=== PATIENT | female | born 1965 | race Caucasian/White ===

== ENCOUNTER → 2019-12-16 09:31 | Outpatient (BNVA) | payer BC, SELFPAY | PROVIDERS: Family Provider Nurse Practitioner Family; PCP Nurse Practitioner Family; Visit Provider Podiatrist Foot & Ankle Surgery | DX: M79.672 Pain in left foot (principal) | CPT/HCPCS: 73630; 87070; 87075; 87205 ==

== ENCOUNTER → 2020-12-29 13:58 | Outpatient (BNVA) | payer BC, SELFPAY | PROVIDERS: Family Provider Nurse Practitioner Family; PCP Nurse Practitioner Family; Visit Provider Podiatrist Foot & Ankle Surgery | DX: E11.621 Type 2 diabetes mellitus with foot ulcer (principal); L97.509 Non-pressure chronic ulcer of other part of unspecified foot with unspecified severity | CPT/HCPCS: 73630 ==

== ENCOUNTER 2020-12-29 14:45 | Outpatient (CLI) | payer BC, SELFPAY | END 2020-12-29 14:46 | disposition home or self-care (01) | LOC: SPT 14:46 | PROVIDERS: Family Provider Nurse Practitioner Family; PCP Nurse Practitioner Family; Visit Provider Podiatrist Foot & Ankle Surgery | DX: Z46.89 Encounter for fitting and adjustment of other specified devices (principal) | CPT/HCPCS: 87070; 87075; 87077; 87205; 97760; L4361 ==

== ENCOUNTER → 2021-01-01 15:30 | Outpatient (BNVA) | payer BC, SELFPAY | PROVIDERS: Family Provider Nurse Practitioner Family; PCP Nurse Practitioner Family; Visit Provider Podiatrist Foot & Ankle Surgery | DX: E11.621 Type 2 diabetes mellitus with foot ulcer (principal); L97.509 Non-pressure chronic ulcer of other part of unspecified foot with unspecified severity; Z01.818 Encounter for other preprocedural examination; E11.42 Type 2 diabetes mellitus with diabetic polyneuropathy; M21.611 Bunion of right foot; M21.612 Bunion of left foot; M20.21 Hallux rigidus, right foot; M20.22 Hallux rigidus, left foot; L97.523 Non-pressure chronic ulcer of other part of left foot with necrosis of muscle; Z20.822 Contact with and (suspected) exposure to COVID-19 | CPT/HCPCS: 87635 ==

== ENCOUNTER 2021-01-02 11:03 | Day surgery (SDC) | payer BC, SELFPAY ==
[2021-01-01 17:06] VITALS: BMI 27.8
[2021-01-02] VITALS (7 sets, daily range): BP systolic 114–142; BP diastolic 72–87; PULSE 66–100; RESP 16–18; TEMP 36.7–36.8; O2SAT 92–98
--- NOTE | 2021-01-02 11:30 | P.ANESASSM_ITS ---
Pre-Anesthetic Assessment Pre-Anesthetic Assessment: Height/Weight: Height 1.8 m Weight 90.718 kg Preop Diagnosis: Diabetic foot infection left foot Proposed Procedure: Operation Date: 01/02/21 12:25 Proposed Procedures p Incision and Debridement Left Foot 20872 L97.523(Left) - RADHA GaticaM Was Beta Gustavo taken within 24 hours: Yes Was Clonidine taken within 24 hours: N/A Social: Social History: Tobacco Exam: Pre-Anes Outpt Exam: alert, oriented x 3, clear to auscultation bilaterally and regular rate & rhythm Airway: Submandibular: WNL Cervical ROM: WNL MP: 2 History/ROS: No significant history except as noted and No significant co mplaints CV/HEM: CV/HEM: HTN Metabolic: Metabolic: DM Anesthetic Plan: ASA status: 3 Anesthesia: Anesthesia Evaluation, General and MAC Other: MAC vs GA w/ LMA Risk of > 500 ml blood loss (7ml/kg in children): No PFSH Anesthesia PFSH: Medical History Hypertension Neuropathy Surgical History History of delivery Family History Other Diabetes Social History Current occupational status: employed Current occupation: [employer] Anesthesia Cardiac Studies: No Data to Display
[2021-01-02 11:56] LABS: Glucose Point of Care 332 mg/dL (70-110)
--- NOTE | 2021-01-02 12:04 | W.PM.OPSUD ---
Surgery/Procedure H&P Update DATE OF PROCEDURE: January 02, 2021 DATE H&P PERFORMED: 01/01/21 H&P UPDATE INFORMATION: I have reviewed H&P completed within last 30 days, I have examined patient prior to procedure, No changes to prior documentation and H&P is in [facility] [place] EMR on date indicated PREOP DIAGNOSIS: Diabetic foot infection left foot PLANNED PROCEDURE: Operation Date: 01/02/21 12:25 Proposed Procedures p Incision and Debridement Left Foot 30396 L97.523(Left) - Abdias Oneal DPM
[2021-01-02] MEDS: sodium chloride 0.9% 1,000 ML 30 ML IV (12:05)
[2021-01-02] MEDS: midazolam 1 mg/mL INJ 2 mL 2 MG IVP (12:05)
--- NOTE | 2021-01-02 12:05 | PM.OP ---
Operative Report Date of procedure: January 02, 2021 Pre-op Diagnosis: Diabetic foot infection left foot Post-op diagnosis: same Procedure Done: Incision and Debridement down to bone left Foot 31894 Implants: None Surgeon: Abdias Oneal DPM [employer] Supervisor: Sarah Anesthesia: MAC Estimated blood loss: 20 Tourniquet time: 0 IV fluids: 0 Urine output: 0 Complications: None Condition: stable Disposition: PACU Brief History: Patient states a new wound popped up overnight on her left foot refused admission to the hospital, has been on oral antibiotics without any worsening of erythema or ascending cellulitis or other deep tissue necrosis I recommended formal surgical debridement patient is agreeable. Risks include pain, bleeding, numbness, infection, amputation, need for further surgical intervention, antibiotic therapies and wound care therapies. No guarantees written, expressed or implied. Procedure: Under mild sedation the patient was brought to the operating room and remained on the gurney in supine position. Timeout was performed. Anesthesia was administered by the anesthesia service. Local anesthesia injected by myself 20 cc of one-to-one mixture 1% lidocaine and point 5C Marcaine plain in a left Tejada block fashion. Well-padded pneumatic tourniquet applied to the left ankle this was not inflated during the duration of procedure. Left lower extremity was scrubbed, prepped and draped utilizing normal aseptic technique. Attention was directed to the left foot where a #10 blade was utilized to excise to healthy margins of the wound circumferentially down to deep fascia and muscle. Wound was debrided sharply and excisionally nature with a combination of 15 blade, pickups and a rongeur. Had the appearance of the original wound at the plantar aspect of the left hallux and then is sending infection to the medial aspect of the left first metatarsophalangeal joint. The wound traveled to bone involving the cortex of the plantar surface of the left hallux proximal phalanx which was incised and debrided down to bone of normal density and color. Incision was flushed with copious amounts of sterile saline solution, post debridement left plantar hallux wound measurements 1.5 cm x 1.5 cm x 0.5 cm in the medial left forefoot wound measures 9 cm x 5 cm x 0.4 cm. Incision was flushed with copious amounts of sterile saline solution 1 g of vancomycin powder directly applied to the wound bed followed by saline wet-to-dry dressing, outer Kerlix and 4 inch Coban. Patient tolerated the procedure well and was transferred to the PACU with vital signs stable and vascular status intact. Has an appointment tomorrow and wound care will await final culture that was taken previously and consider PICC line, will collaborate with wound care.
[2021-01-02] MEDS: insulin regular-human 100 units/1 mL 10 UNIT IVP (12:16)
--- NOTE | 2021-01-02 12:16 | XR_ITS ---
WS: [id number] Left foot, 3 views, 01/02/2021 Clinical Data: post op Comparison: Left foot, 12/29/2020. Findings: There is irregularity of the soft tissue overlying the medial aspect of the left first toe proximal p halanx from recent surgery. A radiopaque dressing is overlying this area. The bones of the left foot show no change. XR/XR foot LT min 3V* [id number] Impression: Soft tissue surgery with irregularity of the soft tissue overlying the left fir st toe proximal phalanx.
[2021-01-02] MEDS: clindamycin 600 MG/50 ML PREMIX 100 MG IV (12:18)
[2021-01-02 12:32] LABS: OR HCG Qualitative Urine Negative (Negative)
[2021-01-02] MEDS: vancomycin 1,000 MG SDV 1000 MG XX (12:38)
[2021-01-02] MEDS: lidocaine 1% INJ 20 mL 10 ML XX (12:40)
--- NOTE | 2021-01-02 16:45 | ANE.PACU2 ---
Inpatient post-anesthesia follow up: Airway intact: Yes Vital signs: Temperature 98.0 F Pulse Rate 83 Respiratory Rate 18 Blood Pressure 117/79 Pulse Oximetry 92 Oxygen Delivery Me thod Room Air Oxygen Flow Rate Fraction of Inspir ed Oxygen Hydration adequate: Yes Nausea and vomiting: No Pain level: 1 Mental status: Baseline
== END 2021-01-02 13:56 | disposition home or self-care (01) ==
PROVIDERS: Student in an Organized Health Care Education/Training Program; PCP Nurse Practitioner Family; Visit Provider Podiatrist Foot & Ankle Surgery
PROC: (CPT 28005; principal; 2021-01-02 12:15)
DX: E11.621 Type 2 diabetes mellitus with foot ulcer (principal); L97.523 Non-pressure chronic ulcer of other part of left foot with necrosis of muscle; E11.42 Type 2 diabetes mellitus with diabetic polyneuropathy; M21.612 Bunion of left foot; M20.22 Hallux rigidus, left foot; G62.9 Polyneuropathy, unspecified; I10 Essential (primary) hypertension; Z88.0 Allergy status to penicillin; Z79.4 Long term (current) use of insulin; Z83.3 Family history of diabetes mellitus
CPT/HCPCS: 28005; 36416; 73630; 81025; 82962; 84703; 96365; 96374; J1815; J2250; J2704; J3370; J3490; J7030

== ENCOUNTER → 2021-01-08 09:47 | Outpatient (BNVA) | payer BC, SELFPAY | PROVIDERS: PCP Nurse Practitioner Family; Visit Provider Podiatrist Foot & Ankle Surgery | DX: L97.523 Non-pressure chronic ulcer of other part of left foot with necrosis of muscle (principal) | CPT/HCPCS: 73630 ==

== ENCOUNTER → 2021-01-22 16:06 | Outpatient (BNVA) | payer BC, SELFPAY | PROVIDERS: PCP Nurse Practitioner Family; Visit Provider Podiatrist Foot & Ankle Surgery | DX: L97.523 Non-pressure chronic ulcer of other part of left foot with necrosis of muscle (principal); M77.32 Calcaneal spur, left foot; M65.872 Other synovitis and tenosynovitis, left ankle and foot | CPT/HCPCS: 73630 ==

== ENCOUNTER 2021-01-30 10:12 | Outpatient (CLI) | payer BC, SELFPAY | END 2021-01-30 10:13 | disposition home or self-care (01) | PROVIDERS: PCP Nurse Practitioner Family; Visit Provider Thoracic Surgery (Cardiothoracic Vascular Surgery) | DX: E11.621 Type 2 diabetes mellitus with foot ulcer (principal); L97.523 Non-pressure chronic ulcer of other part of left foot with necrosis of muscle; Z87.891 Personal history of nicotine dependence | CPT/HCPCS: 11043; G0463 ==

== ENCOUNTER 2021-02-06 13:12 | Outpatient (CLI) | payer BC, SELFPAY | END 2021-02-06 13:13 | disposition home or self-care (01) | LOC: WOUND 13:12 | PROVIDERS: PCP Nurse Practitioner Family; Visit Provider Thoracic Surgery (Cardiothoracic Vascular Surgery) | DX: I96 Gangrene, not elsewhere classified (principal); E11.621 Type 2 diabetes mellitus with foot ulcer; L97.523 Non-pressure chronic ulcer of other part of left foot with necrosis of muscle; Z87.891 Personal history of nicotine dependence | CPT/HCPCS: 11043 ==

== ENCOUNTER 2021-02-13 13:03 | Outpatient (CLI) | payer BC, SELFPAY | END 2021-02-13 13:04 | disposition home or self-care (01) | LOC: WOUND 13:05 | PROVIDERS: PCP Nurse Practitioner Family; Visit Provider Nurse Practitioner Family | DX: I96 Gangrene, not elsewhere classified (principal); E11.621 Type 2 diabetes mellitus with foot ulcer; L97.521 Non-pressure chronic ulcer of other part of left foot limited to breakdown of skin; I10 Essential (primary) hypertension; Z87.891 Personal history of nicotine dependence | CPT/HCPCS: 11042 ==

== ENCOUNTER 2021-02-26 11:29 | Outpatient (CLI) | payer BC, SELFPAY ==
--- NOTE | 2021-02-26 11:40 | MR_ITS ---
WS: [id number] MRI LEFT FOOT with and without CONTRAST. COMPARISON: Radiographs 01/22/2021 Multiplanar, multisequence imaging is performed with and without contrast. Sagittal and axial T1 fat sat sequences post-MultiHance 20 cc IV. There is extensive edema with increased soft tissue thickening involving the medial foot beginning ne ar the proximal first metatarsal and extending distally to the first IP joint. Soft tissue thickening and edema extends laterally to encase the first metatarsophalangeal joint and the proximal phalanx o f the first toe and the sesamoid bones. On the postcontrast imaging there is enhancement with loss of the normal cortex involving the medial first metatarsal head. There is additional osseous enhancemen t involving the base of the proximal medial first phalanx. There is soft tissue enhancement surroundi ng the first metatarsal and a large portion of the first toe. There is a soft tissue ulceration measu ring 1.4 cm in diameter extending to about the first metatarsal head and the joint. There is an addit ional 1.1 cm peripherally enhancing soft tissue mass consistent with an abscess just medial to the pr oximal first phalanx. There is edema surrounding the distal flexor hallucis longus tendon along the p lantar surface distally at the level of the metatarsal and toe. There is additional edema surrounding the foot but no additional areas of bone destruction appreciate d. MR/MR foot LT wo/w con [id number] IMPRESSION: 1. Osteomyelitis involving the first metatarsal head and the base of the proxi mal phalanx first toe. 2. Soft tissue ulceration measures 1.4 cm in diameter extends to the first met atarsal head. 3. Additional soft tissue abscess measuring 1.1 cm just medial to the proximal phalanx of the first toe. 4. Additional diffuse cellulitis involving the medial foot. 5. Enhancement surrounding the sesamoid bones of the first metatarsal head and there is enlargement and enhancement involving the sheath of the flexor halluc is longus tendon.
[2021-02-26] MEDS: gadobenate dimeglumine 20 mL vial IV (12:51)
== END 2021-02-26 11:30 | disposition home or self-care (01) ==
LOC: RADSHAW 11:36
PROVIDERS: PCP Nurse Practitioner Family; Visit Provider Thoracic Surgery (Cardiothoracic Vascular Surgery)
DX: E11.621 Type 2 diabetes mellitus with foot ulcer (principal); M86.8X7 Other osteomyelitis, ankle and foot; L03.116 Cellulitis of left lower limb
CPT/HCPCS: 73720; A9577

== ENCOUNTER 2021-02-26 13:18 | Outpatient (CLI) | payer BC, SELFPAY | END 2021-02-26 13:19 | disposition home or self-care (01) | LOC: WOUND 13:18 | PROVIDERS: PCP Nurse Practitioner Family; Visit Provider Thoracic Surgery (Cardiothoracic Vascular Surgery) | DX: E11.621 Type 2 diabetes mellitus with foot ulcer (principal); L97.526 Non-pressure chronic ulcer of other part of left foot with bone involvement without evidence of necrosis; Z87.891 Personal history of nicotine dependence | CPT/HCPCS: 11043 ==

== ENCOUNTER → 2021-02-28 15:52 | Outpatient (BNVA) | payer BC, SELFPAY | PROVIDERS: PCP Nurse Practitioner Family; Visit Provider Podiatrist Foot & Ankle Surgery | DX: L97.523 Non-pressure chronic ulcer of other part of left foot with necrosis of muscle (principal); L03.116 Cellulitis of left lower limb | CPT/HCPCS: 73630 ==

== ENCOUNTER → 2021-03-05 10:28 | Outpatient (BNVA) | payer BC, SELFPAY | PROVIDERS: PCP Nurse Practitioner Family; Visit Provider Podiatrist Foot & Ankle Surgery | DX: E11.42 Type 2 diabetes mellitus with diabetic polyneuropathy (principal); L97.523 Non-pressure chronic ulcer of other part of left foot with necrosis of muscle | CPT/HCPCS: 87635 ==

== ENCOUNTER 2021-03-16 05:35 | Day surgery (SDC) | payer BC, SELFPAY ==
[2021-03-15 13:19] VITALS: BMI 27.9
[2021-03-16] VITALS (9 sets, daily range): BP systolic 102–125; BP diastolic 62–93; PULSE 81–95; RESP 12–18; TEMP 36.3–36.5; O2SAT 94–98
[2021-03-16] MEDS: sodium chloride 0.9% 1,000 ML 30 ML IV (06:21)
[2021-03-16 06:27] LABS: Glucose Point of Care 362 mg/dL (70-110)
--- NOTE | 2021-03-16 06:40 | W.PM.OPSUD ---
Surgery/Procedure H&P Update DATE OF PROCEDURE: March 16, 2021 DATE H&P PERFORMED: 03/14/21 H&P UPDATE INFORMATION: I have reviewed H&P completed within last 30 days, I have examined patient prior to procedure, No changes to prior documentation and H&P is in [facility] EMR on date indicated PREOP DIAGNOSIS: Osteomyelitis left foot PLANNED PROCEDURE: Operation Date: 03/16/21 07:00 Proposed Procedures p Right foot Debridement 25984 95382 E11.42 L97.524 Z91.19(Left) - Abdias Oneal DPM s Insertion Antibiotic Spacer Left Foot(Left) - Abdias Oneal DPM
--- NOTE | 2021-03-16 06:48 | ANES.PREANE2 ---
Pre-Anesthetic Assessment Pre-Anesthetic Assessment: Height/Weight: Height 1.78 m Weight 88.451 kg Temp Pulse Resp BP Pulse Ox 97.7 F 95 18 125/93 96 03/16/21 06:04 03/16/21 06:04 03/16/21 06:04 03/16/21 06:04 03/16/21 06:04 Preop Diagnosis: Osteomyelitis left foot Proposed Procedure: Operation Date: 03/16/21 07:00 Proposed Procedures p Right foot Debridement 04164 59910 E11.42 L97.524 Z91.19(Left) - Abdias Oneal DPM s Insertion Antibiotic Spacer Left Foot(Left) - Abdias Oneal DPM Was Beta Gustavo taken within 24 hours: Yes Was Clonidine taken within 24 hours: N/A Last intake: Intake Last Liquid Date 03/15/21 Last Liquid Time 22:00 Last Solid Date 03/15/21 Last Solid Time 19:00 Social: Social History: Tobacco and No alcohol Exam: Pre-Anes Outpt Exam: alert, oriented x 3 and regular rate & rhythm Airway: Submandibular: WNL Cervical ROM: WNL MP: 2 Dentition: Full CV/HEM: CV/HEM: HTN Metabolic: Metabolic: DM Anesthetic Plan: ASA status: 3 Anesthesia: Choice Risk of > 500 ml blood loss (7ml/kg in children): No Medications/Allergies Current Medications: Current Medications Generic Name Dose Route Start Last Admin Trade Name Freq PRN Reason Stop Dose Admin Sodium Chloride 1,000 mls @ 30 ml s/hr 03/16/21 06:00 03/16/21 06:21 Sodium Chloride 0.9% IV 03/17/21 05:59 30 mls/hr .Q24H NORMAN Administration PFSH Anesthesia PFSH: Medical History Hypertension Neuropathy Surgical History History of delivery Family History Other Diabetes Social History Current occupational status: employed Current occupation: [employer] Data Anesthesia Other Labs: Laboratory Results - last 48 hr 03/16/21 06:20 POC Glucose 362 H Cardiac Studies: No Data to Display
[2021-03-16 07:09] LABS: OR HCG Qualitative Urine Negative (Negative)
[2021-03-16] MEDS: clindamycin 600 MG/50 ML PREMIX 100 MG IV (07:11)
[2021-03-16] MEDS: vancomycin 1,000 MG SDV 1000 MG XX (07:40)
[2021-03-16] MEDS: vancomycin 1,000 MG SDV 1000 MG (07:45)
[2021-03-16] MEDS: lidocaine 1% INJ 20 mL XX (07:45)
--- NOTE | 2021-03-16 07:56 | PM.OP ---
Operative Report Date of procedure: March 16, 2021 Pre-op Diagnosis: Osteomyelitis left foot Post-op diagnosis: same Post-op Diagnosis: Diabetic ulcer and osteomyelitis left foot Post-op Findings: Improved wound appearance post debridement Procedure Done: Incision of bone cortex left first metatarsal CPT code 92817 Implants: 3-0 nylon Specimens removed/disposition: Medial aspect of left first metatarsal head sent to microbiology for Gram stain and culture Pathology: none sent Surgeon: Abdias Oneal D.P.M. Employee Services Manager: Aj Anesthesia: MAC Estimated blood loss: 10 Tourniquet time: 20 IV fluids: None Urine output: None Complications: None Findings: Decreased bone density and off yellow color involving the very medial aspect of the left first metatarsal, first metatarsal head across the cartilaginous surface and remaining first metatarsal had appropriate bone density and color. Significant devitalized tissue down to fascia and muscle at the left plantar medial forefoot. Condition: stable Disposition: PACU Brief History: Patient has had a delayed healing wound at the medial aspect of her left forefoot, started out as a callus then blistered, became a infected diabetic ulcer and she sought medical treatment. She has not been following through with referrals to endocrinology and primary care to help manage her diabetes. She also has not been compliant with weightbearing status, remains active and walking/standing. She has received treatment for this wound consisting of debridement, wound cultures, local wound care, oral antibiotics and offloading, this is been a joint effort between myself and the wound care clinic. Patient's wound has become more concerning for possible osteomyelitis, MRI shows early osteomyelitis at the base of the proximal phalanx and head of the first metatarsal of the left foot first metatarsophalangeal joint. Patient is wishing to pursue all efforts to maintain her foot and avoid amputation. Recommended endocrinology referral for glycemic control, establishing and following up with primary care, more compliance with her weightbearing status and a surgical debridement and incision down to bone to help guide long-term antibiotic therapy combined with wound care in efforts to salvage her foot. Patient is agreeable wishes to proceed. Has been n.p.o. since midnight. This procedure was delayed due to a positive Covid swab, initial plan was to do her surgery last week but had to wait 10 days following her positive Covid. Patient is asymptomatic at this time is waited 10 days and is ready to proceed. Risks include but are not limited to pain, bleeding, numbness, infection, persistent osteomyelitis and ascending infection, transfer pressure, transfer lesion, need for further surgical intervention, amputation, need for wound care, oral and possible parenteral antibiotics, delayed healing, nonhealing. Patient is agreeable wishes to proceed. No guarantees written, expressed or implied. Under mild sedation the patient was brought to the operating room and remained on the gurney in supine position. A timeout was performed. Anesthesia was then administered by the anesthesia service. Local anesthesia injected by myself consisting of 30 cc of one-to-one mixture 1% lidocaine and 0.5% Marcaine plain in a proximal Tejada block fashion. Well-padded pneumatic tourniquet applied to the left ankle. The left foot was then scrubbed, prepped and draped utilizing normal aseptic technique. Tourniquet was then inflated to 250 mmHg. Attention was directed to the dorsal medial aspect of the left first metatarsophalangeal joint, there is a full-thickness wound exposed to muscle and tendon at the medial aspect of the left forefoot, dorsal to this and at least 2 cm from the wound a linear longitudinal incision is made at the medial margin of the extensor houses longus tendon with dissection carried down to the joint capsule utilizing blunt and sharp technique. Care was taken to retract and preserve neurovascular and tendinous structures. All bleeders were ligated and cauterized as necessary. The most medial aspect of the first metatarsal head had some loss of bone density and was an off yellow color, this was transected and incision of cortex was performed utilizing a sagittal saw this was passed from the operative field and sent to microbiology for Gram stain and culture. The medial aspect of the base of the proximal phalanx was also debrided through cortex down to healthy-appearing bone. I was able to visualize the first metatarsal head the cartilaginous surface was bright white and had normal appearance with appropriate density. The incision site was then flushed with copious amounts of sterile saline solution and closed with 3-0 nylon. Attention was then directed to the wound at the medial aspect of the left forefoot which was debrided sharply with a 15 blade, pickups and rongeur down to and including subcutaneous tissue, fat layer, tendon, fascia and muscle. All devitalized tissue was sharply debrided and passed from operative field followed by saline flush, incision was then dressed with vancomycin powder, saline wet-to-dry. Tourniquet was deflated and a prompt hyperemic response was noted to the distal digits of the left foot. Patient tolerated the procedure well and was transferred to the PACU with vital signs stable vascular status intact. Following a period of postoperative monitoring she will be discharged home. She is advised to be strict nonweightbearing to the left foot. Further to comply with weightbearing status will likely result in further injury and cellular damage, risk for amputation. Recommended saline wet-to-dry dressing changes twice daily moving forward will follow up in podiatry clinic next week. Patient will be contacted once bone culture yields further results, based off previous cultures she was sent home with Augmentin and Flagyl for anaerobic coverage.
--- NOTE | 2021-03-16 07:57 | XR_ITS ---
WS: [id number] Exam: XR foot LT min 3V* [id number] Date/Time of Exam: 03/16/2021 8:08 AM Reason For Exam: Postop debridement and bone biopsy for long-term antibiotic Comparison 02/28/2021. There is postoperative change of the medial margin of the head of the first metatarsal. There is asso ciated demineralization that could represent osteomyelitis. Small amount of soft tissue air noted giselle ng the medial aspect of the MP joint of the great toe. Areas of demineralization involving the base o f the proximal phalanx of the great toe are stable in appearance. Demineralization of the phalanges o f the fifth toe also noted unchanged. No fracture or dislocation. No soft tissue foreign bodies. Soft tissue edema of the forefoot. XR/XR foot LT min 3V* [id number] IMPRESSION: 1. Postoperative changes of the head of the first metatarsal with the an area o f demineralization which may represent active osteomyelitis. A small amount of air noted in the soft tissues in this region. 2. Areas of demineralization involving the fifth toe and also the base of the p roximal phalanx of the great toe stable in appearance. Soft tissue edema of the forefoot.
--- NOTE | 2021-03-16 08:19 | P.OP_ITS ---
Operative Report Date of procedure: March 16, 2021 Pre-op Diagnosis: Osteomyelitis left foot Post-op Findings: Same Procedure Done: Incision down to bone cortex left foot CPT code 83919 Implants: 1 g of vancomycin powder, 3-0 nylon Specimens removed/disposition: Bone harvested from first metatarsal head sent to microbiology for gram stain and culture Pathology: none sent Surgeon: Abdias Oneal D.P.M. [employer] Assembl[employer] Supervisor: Brianne Anesthesia: MAC Estimated blood loss: 10 Tourniquet time: 20 IV fluids: 0 Urine output: 0 Complications: None Findings: Poor bone quality at the medial eminence of the first metatarsal head however right remaining first metatarsal head cartilaginous surface, dorsally and medially as well as at the base of the proximal phalanx head proper bone density and color. Condition: stable Disposition: PACU Brief History: Full-thickness wound probes to bone to the left medial forefoot, suspicious for septic joint at the first metatarsophalangeal joint and osteomy elitis early on MRI. Procedure: Under mild sedation the patient was brought to the operating room and remained on the gurney in supine position. Timeout was performed. Anesthesia was then administered by the anesthesia service. Local anesthesia injected by myself 30 cc of one-to-one mixture 1% lidocaine and 0.5% Marcaine plain in a Tejada block fashion. Well-padded pneumatic tourniquet applied to the left ankle. Left lower extremity was then scrubbed, prepped and draped utilizing normal aseptic technique. No Esmarch bandage was utilized due to underlying infection. Left foot was elevated and tourniquet inflated to 250 mmHg. Attention was directed to the dorsal medial aspect of the first metatarsal phalangeal joint where a linear longitudinal incision was made medial and parallel to the extensor houses longus tendon with dissection carried down through subcutaneous tissue bluntly down to bone, the medial aspect of the first metatarsal head had a decreased density and off yellow appearance this was transected utilizing a sagittal saw and passed from operative field this was sent to microbiology for gram stain and culture to help guideantibiotic therapy., The incision was flushed with saline solution and closed in a single layer of 3-0 nylon. Suture was a horizontal mattress. Attention was then directed to the original wound exposed to deep fascia and flexor tendons this was at the medial aspect of the left forefoot, debridement was performed down to and including subcutaneous tissue, fascia, tendon. Post debridement wound measurements 7 cm x 2.2 cm x 1.5 cm with improved appearance. Incision was flushed with saline solution and dressed with vancomycin powder, saline wet-to-dry, Kerlix, ABD pad and Coban. Postop shoe was applied and tourniquet deflated with a prompt hyperemic response noted to the distal digits of the left foot. Patient tolerated the procedure well and was transferred to the PACU with vital signs stable and vascular status intact. Following a period of postoperative monitoring she will be discharged home is remain nonweightbearing to the left foot, elevate while resting. Will prescribe Augmentin and Flagyl based off of previous cultures would like to cover for anaerobes with Flagyl at this time will make adjustments once no culture yields further results.
--- NOTE | 2021-03-16 14:35 | ANE.PACU2 ---
Inpatient post-anesthesia follow up: Airway intact: Yes Vital signs: Temperature 97.4 F Pulse Rate 81 Respiratory Rate 18 Blood Pressure 123/79 Pulse Oximetry 94 Oxygen Delivery Me thod Room Air Oxygen Flow Rate Fraction of Inspir ed Oxygen Hydration adequate: Yes Nausea and vomiting: No Pain level: 1 Mental status: Baseline
== END 2021-03-16 09:15 | disposition home or self-care (01) ==
PROVIDERS: Anesthesiology; PCP Nurse Practitioner Family; Visit Provider Podiatrist Foot & Ankle Surgery
PROC: (CPT 28005; principal; 2021-03-16 07:00)
DX: M86.8X7 Other osteomyelitis, ankle and foot (principal); E11.621 Type 2 diabetes mellitus with foot ulcer; L97.524 Non-pressure chronic ulcer of other part of left foot with necrosis of bone; I10 Essential (primary) hypertension; E11.40 Type 2 diabetes mellitus with diabetic neuropathy, unspecified; Z79.84 Long term (current) use of oral hypoglycemic drugs; E11.65 Type 2 diabetes mellitus with hyperglycemia
CPT/HCPCS: 28005; 36416; 73630; 82962; 84703; 87070; 87176; 87205; 96365; J2704; J3370; J3490; J7030; L3260

== ENCOUNTER → 2021-03-23 12:54 | Outpatient (BNVA) | payer BC, SELFPAY | PROVIDERS: PCP Nurse Practitioner Family; Visit Provider Podiatrist Foot & Ankle Surgery | DX: Z98.890 Other specified postprocedural states (principal); E11.42 Type 2 diabetes mellitus with diabetic polyneuropathy; E11.65 Type 2 diabetes mellitus with hyperglycemia; L97.524 Non-pressure chronic ulcer of other part of left foot with necrosis of bone; L97.523 Non-pressure chronic ulcer of other part of left foot with necrosis of muscle | CPT/HCPCS: 73630 ==

== ENCOUNTER → 2021-04-02 14:25 | Outpatient (BNVA) | payer BC, SELFPAY | PROVIDERS: PCP Nurse Practitioner Family; Visit Provider Podiatrist Foot & Ankle Surgery | DX: Z98.890 Other specified postprocedural states (principal) | CPT/HCPCS: 73630 ==

== ENCOUNTER → 2021-04-09 08:35 | Outpatient (BNVA) | payer BC, SELFPAY | PROVIDERS: PCP Nurse Practitioner Family; Visit Provider Podiatrist Foot & Ankle Surgery | DX: Z98.890 Other specified postprocedural states (principal); L97.524 Non-pressure chronic ulcer of other part of left foot with necrosis of bone | CPT/HCPCS: 73630 ==

== ENCOUNTER → 2021-04-11 08:37 | Outpatient (BNVA) | payer BC, SELFPAY | PROVIDERS: PCP Nurse Practitioner Family; Visit Provider Podiatrist Foot & Ankle Surgery | DX: L97.523 Non-pressure chronic ulcer of other part of left foot with necrosis of muscle (principal); L97.524 Non-pressure chronic ulcer of other part of left foot with necrosis of bone | CPT/HCPCS: 80053; 85025; 85651; 86140 ==

== ENCOUNTER → 2021-04-16 08:40 | Outpatient (BNVA) | payer BC, SELFPAY | PROVIDERS: PCP Nurse Practitioner Family; Visit Provider Podiatrist Foot & Ankle Surgery | DX: Z98.890 Other specified postprocedural states (principal); L97.524 Non-pressure chronic ulcer of other part of left foot with necrosis of bone; L97.523 Non-pressure chronic ulcer of other part of left foot with necrosis of muscle | CPT/HCPCS: 73630 ==

== ENCOUNTER → 2021-04-23 08:17 | Outpatient (BNVA) | payer BC, SELFPAY | PROVIDERS: PCP Nurse Practitioner Family; Visit Provider Podiatrist Foot & Ankle Surgery | DX: Z98.890 Other specified postprocedural states (principal) | CPT/HCPCS: 73630 ==

== ENCOUNTER → 2021-04-25 09:37 | Outpatient (BNVA) | payer BC, SELFPAY | PROVIDERS: PCP Nurse Practitioner Family; Visit Provider Podiatrist Foot & Ankle Surgery | DX: Z01.818 Encounter for other preprocedural examination (principal) | CPT/HCPCS: 87635 ==

== ENCOUNTER 2021-04-27 10:11 | Day surgery (SDC) | payer BC, SELFPAY ==
[2021-04-26 11:51] VITALS: BMI 26.0
[2021-04-27 11:21] VITALS: BP 138/88; PULSE 88; RESP 18; TEMP 36.8; O2SAT 98
[2021-04-27] MEDS: sodium chloride 0.9% 1,000 ML 30 ML IV (11:45)
[2021-04-27] MEDS: vancomycin 1,000 MG in sodium chloride 0.9% 250 ML 167 MG IV (11:45)
--- NOTE | 2021-04-27 12:03 | W.PM.OPSUD ---
Surgery/Procedure H&P Update DATE OF PROCEDURE: May 07, 2021 DATE H&P PERFORMED: 04/23/21 CHANGES TO PREVIOUS DOCUMENTATION: None PREOP DIAGNOSIS: Osteomyelitis left foot PLANNED PROCEDURE: Operation Date: 04/27/21 12:20 Proposed Procedures p Incision And Debridement left foot 80923/l97.524(Left) - Abdias Oneal DPM s Insertion Antibiotic Beads(Left) - Abdias Oneal DPM
[2021-04-27] MEDS: lidocaine 1% INJ 20 mL INJECTION (12:07)
[2021-04-27] MEDS: vancomycin 1,000 MG SDV 1000 MG XX (12:15)
--- NOTE | 2021-04-27 12:21 | P.ANESASSM_ITS ---
Pre-Anesthetic Assessment Height/Weight: Height 1.8 m Weight 84.822 kg Temp Pulse Resp BP Pulse Ox 98.2 F 88 18 138/88 98 04/27/21 11:21 04/27/21 11:21 04/27/21 11:21 04/27/21 11:21 04/27/21 11:21 Preop Diagnosis: Osteomyelitis left foot Operation Date: 04/27/21 12:20 Proposed Procedures p Incision And Debridement left foot 17250/l97.524(Left) - Abdias Oneal DPM s Insertion Antibiotic Beads(Left) - Abdias Oneal DPM Familial anesthetic complications: None Was Beta Gustavo taken within 24 hours: N/A Was Clonidine taken within 24 hours: N/A Last intake: Intake Last Liquid Date 04/26/21 Last Liquid Time 22:30 Last Solid Date 04/26/21 Last Solid Time 22:30 Social No alcohol and No tobacco Exam alert, oriented x 3, clear to auscultation bilaterally and regular rate & rhythm Airway Submandibular: within normal limits Cervical ROM: within normal limits Mallampati: Class II Dentition: full Metabolic Diabetes Mellitus (Poorly controlled) Anesthetic Plan ASA status: 3 Anesthesia: MAC Risk of > 500 ml blood loss (7ml/kg in children): No Medications/Allergies Home Medications Medication Instructions Recorded Confirmed Last Taken Type glipizide 5 mg tablet 5 mg PO DAILY 12/16/19 04/27/21 04/26/21 History metformin 1,000 mg tablet,extended 1,000 mg PO DAILY 12/16/19 04/27/21 04/26/21 History release 24hr Cam Boot to left #1 ea 12/29/20 04/26/21 Unknown Rx Crutches #1 ea 03/23/21 04/26/21 Unknown Rx linezolid 600 mg tablet 600 mg PO BID 14 Days #28 tab 04/16/21 04/27/21 04/26/21 Rx Allergies Allergy/AdvReac Type Severity Reaction Status Date / Time penicillin V Allergy Unknown unknown Verified 04/26/21 11:50 Current Medications Generic Name Dose Route Start Last Admin Trade Name Freq PRN Reason Stop Dose Admin Sodium Chloride 1,000 mls @ 30 mls/hr 04/27/21 11:15 04/27/21 11:45 Sodium Chloride 0.9% IV 04/28/21 11:14 30 mls/hr .Q24H NORMAN Administration PFSH Anesthesia Medical History Hypertension Neuropathy Surgical History History of delivery Family History Other Diabetes Social History Smoking and tobacco status: never smoked Current occupational status: employed Current occupation: [employer] Female [employer]ductive History Date of last menstrual period: 02/26/21 Data Anesthesia Cardiac Studies: No Data to Display
[2021-04-27 12:33] VITALS: BP 120/73; PULSE 85; RESP 18; TEMP 36.1; O2SAT 95
--- NOTE | 2021-04-27 12:37 | XR_ITS ---
WS: [id number] Left foot, 2 views, 04/27/2021 Clinical Data: post op Comparison: Left foot, 04/23/2021. Findings: The distal portion of the left first metatarsal has been resected and there is artificial material in serted into the surgical void. There is irregularity of the articular surface of the left first toe proximal phalanx. Postoperative air is seen adjacent to the left first metatarsal head. There is a bandage about the foot. Remainder of the foot shows no change. XR/XR foot LT 2V 70189 Impression: Postoperative findings following the resection of the distal aspect of the left first metatarsal.
[2021-04-27 12:40] LABS: Glucose Point of Care 386 mg/dL (70-110)
[2021-04-27 12:40] LABS: Glucose Point of Care 372 mg/dL (70-110)
[2021-04-27 12:41] VITALS: BP 124/83; PULSE 84; RESP 15; TEMP 36.6; O2SAT 95
[2021-04-27 12:56] VITALS: BP 139/88; PULSE 78; RESP 17; TEMP 36.6; O2SAT 95
--- NOTE | 2021-04-27 16:20 | ANE.PACU2 ---
Inpatient post-anesthesia follow up: Airway intact: Yes Vital signs: Temperature 98 F Pulse Rate 78 Respiratory Rate 17 Blood Pressure 139/88 Pulse Oximetry 95 Oxygen Delivery Me thod Room Air Oxygen Flow Rate Fraction of Inspir ed Oxygen Hydration adequate: Yes Nausea and vomiting: No Pain level: 1 Mental status: Baseline
--- NOTE | 2021-04-27 20:06 | PM.OP ---
Operative Report Date of procedure: April 27, 2021 Pre-op diagnosis: osteomyelitis left foot Post-op diagnosis: Same Procedure done: Incision of cortex left foot with insertion of antibiotic impregnated cement spacer. CPT code 78031 Implants: 3-0 nylon, 1 g of vancomycin powder and Simplex P with tobramycin Specimens removed/disposition: Devitalized bone from the head of the first metatarsal sent to microbiology for Gram stain and culture Pathology: None Surgeon: Abdias [facility]al [facility] Food Service Worker: Gracy Miner Estimated blood loss: Less than 10 See intraoperative documentation IV fluids: None Urine output: None Complications: None Findings: Devitalized left first metatarsal head and proximal phalanx. Brief History: Noncompliant uncontrolled diabetic female with osteomyelitis to the left foot worsening clinical picture with increased erythema, purulent drainage from a wound probes directly to the first metatarsal head wound is medially at the left foot. Noncompliance includes failure to follow-up with primary care, failure to follow through with referrals to endocrinology, failure to comply with nonweightbearing. She is opposed to amputation of the foot, for this reason recommended incision down to bone and insertion of antibiotic impregnated cement spacer this will likely be a staged procedure and require further debridement and regular wound care will have to be monitored with labs and serial x-rays. She has an upcoming appointment set up this Friday endocrinology I encouraged her to keep this. I encouraged her to remain strict nonweightbearing postoperatively to avoid further complications and further injury to soft tissue. Patient is at risk of loss of limb and loss of life and has poor insight on her medical condition. She has been n.p.o. since midnight. Covid screening is negative. Informed consent signed by patient and myself, I initialed her left foot. Risks include pain, bleeding, numbness, infection, progression of infection, sepsis, septic joint, loss of limb loss of life. Procedure: Under mild sedation the patient was brought to the operating room and remained on the gurney in supine position. A timeout was performed. Anesthesia was then administered by the anesthesia service. Local anesthesia injected by myself consisting of 30 cc of one-to-one mixture 1% lidocaine and 0.5% Marcaine plain in a left Tejada block fashion. Well-padded pneumatic tourniquet applied to the left leg. Left lower extremity is then scrubbed, prepped and draped utilizing normal aseptic technique. Attention was directed to the dorsal aspect of the left first metatarsal phalangeal joint. Medially there is a wound probes directly to bone. Adjacent to the wound intact skin and incision was made dorsally medial and parallel to the extensor houses longus tendon at the left first metatarsal phalangeal joint down to bone. The head of the first metatarsal was visualized and palpated noted to have poor density and color was off yellow and diaz at the distal head which was excised and sent to microbiology for Gram stain and culture. Debridement of the head of the first metatarsal through cortex and debridement within the intramedullary canal was performed at the head of the first metatarsal as well as the base of the proximal phalanx followed by flush and irrigation with copious amounts of sterile saline solution. Simplex P with tobramycin and in addition of vancomycin was inserted into the medullary canal of the first metatarsal head and base of the proximal phalanx followed by additional Simplex P into the voided cavernous space. Incision was flushed with saline solution and closed with 3-0 nylon. Incision was then dressed with Adaptic, sterile 4 x 4, Kerlix, Lalo wrap and a postop shoe was applied. Tourniquet was deflated and a prompt hyperemic response was noted to the distal digits of the left foot. Patient tolerated the procedure and anesthesia well and was transferred to the PACU with vital signs stable and vascular status intact. Following a period of postoperative monitoring she will be discharged home was given instruction to remain strict nonweightbearing and encouraged her follow-up with endocrinology the scheduled this Friday. Will continue with linezolid and make adjustments as cultures yield further results as necessary.
== END 2021-04-27 13:20 | disposition home or self-care (01) ==
PROVIDERS: PCP Nurse Practitioner Family; Visit Provider Podiatrist Foot & Ankle Surgery
PROC: (CPT 28005; principal; 2021-04-27 12:10)
PROC: (CPT 28005; 2021-04-27 12:10)
DX: M86.8X7 Other osteomyelitis, ankle and foot (principal); Z79.84 Long term (current) use of oral hypoglycemic drugs; I10 Essential (primary) hypertension; E11.40 Type 2 diabetes mellitus with diabetic neuropathy, unspecified; Z83.3 Family history of diabetes mellitus
CPT/HCPCS: 28005; 36416; 73620; 82962; 87070; 87075; 87205; J2250; J2370; J2704; J3370; J3490; J7030; J7050

== ENCOUNTER → 2021-05-07 10:24 | Outpatient (BNVA) | payer BC, SELFPAY | PROVIDERS: PCP Nurse Practitioner Family; Visit Provider Podiatrist Foot & Ankle Surgery | DX: Z98.890 Other specified postprocedural states (principal) | CPT/HCPCS: 73630 ==

== ENCOUNTER → 2021-05-14 15:24 | Outpatient (BNVA) | payer BC, SELFPAY | PROVIDERS: PCP Nurse Practitioner Family; Visit Provider Podiatrist Foot & Ankle Surgery | DX: Z98.890 Other specified postprocedural states (principal); L97.524 Non-pressure chronic ulcer of other part of left foot with necrosis of bone | CPT/HCPCS: 73630 ==

== ENCOUNTER → 2021-05-28 08:42 | Outpatient (BNVA) | payer BC, SELFPAY | PROVIDERS: PCP Nurse Practitioner Family; Visit Provider Podiatrist Foot & Ankle Surgery | DX: Z98.890 Other specified postprocedural states (principal) | CPT/HCPCS: 73630 ==

== ENCOUNTER 2021-05-28 09:35 | Outpatient (CLI) | payer BC, SELFPAY ==
[2021-05-28 09:59] LABS: Basophils % 0.6 %; Eosinophils # 0.1 10^3/uL (0.0-0.8); Hematocrit 41.3 % (37.0-47.0); Hemoglobin 13.7 g/dL (11.5-15.3); Lymphocytes % 20.7 %; Mean Corpuscular HGB Conc 33.2 g/dL (30.0-36.0); Mean Corpuscular Volume 87.3 fl (81-99); Mean Platelet Volume 10.6 fL (7.4-10.4); Monocytes # 0.3 10^3/uL (0.2-0.9); Monocytes % 7.1 %; Neutrophils # 3.16 10^3/uL (1.8-7.7); Neutrophils % 68.4 %; Nucleated Red Blood Cells % 0 %; Platelet Count 93 10^3/cmm (130-400); Red Blood Count 4.73 10^6/uL (4.1-5.3); Red Cell Distribution Width 13.7 % (12.1-15.1); White Blood Count 4.6 10^3/uL (4.0-10.0)
[2021-05-28 10:49] LABS: Erythrocyte Sedimentation Rate 14 mm/hr (0-15)
== END 2021-05-28 09:36 | disposition home or self-care (01) ==
LOC: LAB 09:37
PROVIDERS: PCP Nurse Practitioner Family; Visit Provider Podiatrist Foot & Ankle Surgery
DX: Z01.818 Encounter for other preprocedural examination (principal)
CPT/HCPCS: 85025; 85651; 86140

== ENCOUNTER 2021-06-08 08:04 | Day surgery (SDC) | payer BC, SELFPAY ==
[2021-06-07 13:25] VITALS: BMI 26.6
[2021-06-08] VITALS (7 sets, daily range): BP systolic 112–144; BP diastolic 71–92; PULSE 81–98; RESP 12–18; TEMP 36.3–36.6; O2SAT 97–100
[2021-06-08] MEDS: sodium chloride 0.9% 1,000 ML 30 ML IV (08:49)
[2021-06-08] MEDS: scopolamine 1.5 Patch 1 PATCH TRANSDERMA (09:10)
[2021-06-08] MEDS: ondansetron 2 mg/ML SDV 2 mL 4 MG IVP (09:10)
--- NOTE | 2021-06-08 09:15 | W.PM.OPSUD ---
Surgery/Procedure H&P Update DATE OF PROCEDURE: June 08, 2021 DATE H&P PERFORMED: 05/28/21 CHANGES TO PREVIOUS DOCUMENTATION: None PREOP DIAGNOSIS: Osteomyelitis left foot PLANNED PROCEDURE: Operation Date: 06/08/21 09:25 Proposed Procedures p Primary delayed closure & removal cement spacer left foot 29180/00132/l97.524(Left) - Abdias Oneal DPM
[2021-06-08] MEDS: clindamycin 600 MG/50 ML PREMIX 100 MG IV (09:33)
--- NOTE | 2021-06-08 09:43 | P.ANESASSM_ITS ---
Pre-Anesthetic Assessment Height/Weight: Height 1.8 m Weight 86.636 kg Temp Pulse Resp BP Pulse Ox 97.9 F 98 18 144/92 100 06/08/21 08:28 06/08/21 08:28 06/08/21 08:28 06/08/21 08:28 06/08/21 08:28 Preop Diagnosis: Osteomyelitis left foot Operation Date: 06/08/21 09:25 Proposed Procedures p Primary delayed closure & removal cement spacer left foot 13 160/20147/l97.524(Left) - Abdias Oneal DPM Familial anesthetic complications: None Was Beta Gustavo taken within 24 hours: N/A Was Clonidine taken within 24 hours: N/A Last intake: Intake Last Liquid Date 06/07/21 Last Liquid Time 11:45 Last Solid Date 06/07/21 Last Solid Time 18:30 Social No alcohol and No tobacco Exam alert, oriented x 3, clear to auscultation bilaterally and regular rate & rhythm Airway Submandibular: within normal limits Cervical ROM: within normal limits Mallampati: Class II Dentition: full Metabolic Diabetes Mellitus and Hyperlipidemia Neuropsych Neuropathy Anesthetic Plan ASA status: 3 Anesthesia: MAC Medications/Allergies Home Medications Medication Instructions Recorded Confirmed Last Taken Type glipizide 5 mg tablet 5 mg PO BID #180 tab 04/30/21 06/07/21 06/07/21 Rx insulin glargine 100 unit/mL (3 50 unit (0.5 mL) SUBCUT QAM #30 ml 04/30/21 06/07/21 06/07/21 Rx mL) subcutaneous pen (Lantus Solostar U-100 Insulin) metformin 1,000 mg 24 hr 1,000 mg PO BID #180 tab 04/30/21 06/07/21 06/07/21 Rx tablet,extended release linezolid 600 mg tablet 600 mg PO BID 06/07/21 06/07/21 06/07/21 History Allergies Allergy/AdvReac Type Severity Reaction Status Date / Time Penicillins Allergy Unknown Verified 06/07/21 13:54 Current Medications Generic Name Dose Route Start Last Admin Trade Name Freq PRN Reason Stop Dose Admin Sodium Chloride 1,000 mls @ 30 mls/hr 06/08/21 08:15 06/08/21 08:49 Sodium Chloride 0.9% IV 06/09/21 08:14 30 mls/hr .Q24H NORMAN Administration Ondansetron HCl 4 mg 06/08/21 08:10 06/08/21 09:10 Ondansetron 2 Mg/Ml Sdv 2 Ml IVP 4 mg Q5M PRN Administration NAUSEA AND VOMITING PFSH Anesthesia Medical History Hypertension Neuropathy Surgical History History of delivery Family History Other Diabetes Social History Smoking and tobacco status: never smoked Current occupational status: employed Current occupation: [employer] Female Reproductive History Date of last menstrual period: 12/07/20 Data Anesthesia Cardiac Studies: No Data to Display
[2021-06-08 09:48] LABS: OR HCG Qualitative Urine Negative (Negative)
[2021-06-08] MEDS: lidocaine 2% INJ 20 mL 15 ML INJECTION (10:02)
[2021-06-08] MEDS: vancomycin 1,000 MG SDV 1000 MG XX (10:03)
--- NOTE | 2021-06-08 10:15 | XR_ITS ---
WS: [id number] Left foot, 3 views, 06/08/2021 Clinical Data: post op Comparison: Left foot, 05/28/2021. Findings: The radiopaque material at the head of the left first metatarsal has been removed and there is air in the residual space. There is irregularity at the base of the left first toe proximal phalanx. Healed fracture of the left fifth toe proximal phalanx is noted. XR/XR foot LT min 3V* 10092 Impression: Removal of radiopaque material from the distal aspect of left first metatarsal.
--- NOTE | 2021-06-08 10:15 | P.OP_ITS ---
Operative Report Date of procedure: June 08, 2021 Pre-op diagnosis: Osteomyelitis left foot Post-op diagnosis: Same Post-op findings: None Procedure done: Incision debridement down to bone with removal of antibiotic impregnated cement spacer left foot Implants: 3-0 nylon, vancomycin h powder of a gram Specimens removed/disposition: Antibiotic cement spacer removed from left foot Pathology: None Surgeon: Abdias Oneal D.P.M. Automobile Contract Clerk: Ange Estimated blood loss: 10 17 IV fluids: None Urine output: None Complications: None Brief History: History of osteomyelitis left foot first metatarsal head and proximal phalanx base. History of uncontrolled diabetes. Has underwent debridements, wound care modalities, is now established with endocrinology, oral antibiotics as well as IV, has a antibiotic impregnated cement spacer 6 weeks out from implantation ready for removal. Procedure: Under mild sedation patient was brought to the operating room and remained on the gurney in supine position. A timeout was performed. Anesthesia was then administered by the anesthesia service. Local anesthesia injected by myself consisting of 30 cc of one-to-one mixture 0.25% Marcaine plain and 2% lidocaine plain in a left Tejada block fashion. Well-padded pneumatic tourniquet applied to the left ankle. Left lower extremity was then scrubbed, prepped and draped utilizing normal aseptic technique. Left foot was elevated and the left ankle tourniquet was inflated to 250 mmHg. Attention was directed to the left foot where a linear longitudinal incision is made over the previous cicatrix at the dorsal medial aspect of the left first metatarsophalangeal joint full-thickness down to bone. Dissection was carried down and around the cement spacer which was then freed from its soft tissue attachments and passed from the operative field. Inspection of the first metatarsal head and the proximal phalanx base was performed. Debridement of soft bone was performed with a rongeur. Incision was flushed with copious amounts of sterile saline solution followed by one half of a gram approximately of vancomycin powder introduced into the incision which was then closed utilizing 3-0 nylon. Incision was then dressed with Adaptic, sterile 4 x 4, Kerlix and Lalo wrap. New cam boot was applied. Tourniquet was deflated and a prompt hyperemic response was noted to the distal digits of the left foot. Patient tolerated the procedure and anesthesia well and was transferred to the PACU with vital signs stable vascular status intact. Following a period of postoperative monitoring she will be discharged home. I encouraged her to remain strict nonweightbearing to left lower extremity elevate while resting. Encouraged compliance to her diabetic medications and following up with primary care physician and endocrinology.
--- NOTE | 2021-06-08 13:06 | ANE.PACU2 ---
Inpatient post-anesthesia follow up: Airway intact: Yes Vital signs: Temperature 97.7 F Pulse Rate 84 Respiratory Rate 14 Blood Pressure 114/72 Pulse Oximetry 97 Oxygen Delivery Me thod Room Air Oxygen Flow Rate 6 Fraction of Inspir ed Oxygen Hydration adequate: Yes Nausea and vomiting: No Pain level: 2 Mental status: Baseline
== END 2021-06-08 11:40 | disposition home or self-care (01) ==
PROVIDERS: Anesthesiology; PCP Nurse Practitioner Family; Visit Provider Podiatrist Foot & Ankle Surgery
PROC: (CPT 13160; principal; 2021-06-08 09:15)
DX: M86.8X7 Other osteomyelitis, ankle and foot (principal); E78.5 Hyperlipidemia, unspecified; Z79.4 Long term (current) use of insulin; Z79.84 Long term (current) use of oral hypoglycemic drugs; I10 Essential (primary) hypertension; E11.40 Type 2 diabetes mellitus with diabetic neuropathy, unspecified
CPT/HCPCS: 11044; 73630; 81025; 84703; J2250; J2405; J2704; J3010; J3370; J3490; J7030

== ENCOUNTER → 2021-07-07 12:54 | Outpatient (BNVA) | payer BC, SELFPAY | PROVIDERS: PCP Nurse Practitioner Family; Visit Provider Registered Nurse Neonatal Intensive Care | DX: N39.0 Urinary tract infection, site not specified (principal) | CPT/HCPCS: 81000 ==

== ENCOUNTER 2021-07-24 10:25 | Day surgery (SDC) | payer BC, SELFPAY ==
[2021-07-19 10:36] VITALS: BMI 26.4
[2021-07-24 11:02] VITALS: BP 124/82; PULSE 108; RESP 18; TEMP 36.1; O2SAT 98
[2021-07-24] MEDS: sodium chloride 0.9% 1,000 ML 30 ML IV (11:11)
--- NOTE | 2021-07-24 11:51 | W.PM.OPSFHP ---
Same Day Surgery H&P Indication for Procedure/HPI DATE OF PROCEDURE: July 24, 2021 CHIEF COMPLAINT/INDICATIONFOR SURGICAL PROCEDURE: colonoscopy PREOP DIAGNOSIS: Osteomyelitis left foot PLANNED PROCEDURE: Operation Date: 07/24/21 12:00 Proposed Procedures p Colonoscopy(Not Applicable) - Urbano Chirinos MD Medications/Allergies* Home Medications Medication Instructions Recorded Confirmed Type linaclotide 145 mcg capsule 145 mcg PO DAILY 07/17/21 07/24/21 History (Linzess) insulin glargine 100 unit/mL (3 14 unit SUBCUT QAM 07/19/21 07/24/21 History mL) subcutaneous pen (Lantus Solostar U-100 Insulin) Allergies/Adverse Reactions Allergy/AdvReac Type Severity Reaction Status Date / Time Penicillins Allergy Unknown Verified 07/24/21 11:09 Current Medications: Generic Name Dose Route Start Last Admin Trade Name Freq PRN Reason Stop Dose Admin Sodium Chloride 1,000 mls @ 30 mls/hr 07/24/21 11:00 07/24/21 11:11 Sodium Chloride 0.9% IV 07/25/21 10:59 30 mls/hr .Q24H NORMAN Administration Pertinent History/Comorbid Conditions* Medical History (Updated 07/17/21 @ 14:34 by Urbano Chirinos MD) Hyperlipemia, mixed Hypertension Neuropathy Uncontrolled type 2 diabetes mellitus Surgical History (Updated 07/17/21 @ 14:34 by Urbano Chirinos MD) History of delivery History of knee surgery 1972 Status post right foot surgery Family History (Updated 12/16/19 @ 08:48 by Nicol De Anda LPN) Diabetes Social History Smoking and tobacco status: current every day smoker Current occupational status: employed Current occupation: [employer] Pertinent Exam Findings alert, oriented x 3 and regular rate & rhythm Recommendations Surgery/Procedure today Coding Level of Care Code Acute Director Informatics for Shari Anderson
--- NOTE | 2021-07-24 12:05 | ANES.PREANE2 ---
Documented by User: Jeff Mckeon Jr, ELIGIBILITY WORKER 07/24/21 12:06 Pre-Anesthetic Assessment Height/Weight: Height 1.8 m Weight 86.183 kg Temp Pulse Resp BP Pulse Ox 97.0 F L 108 H 18 124/82 98 07/24/21 11:02 07/24/21 11:02 07/24/21 11:02 07/24/21 11:02 07/24/21 11:02 Preop Diagnosis: Constipation Operation Date: 07/24/21 12:00 Proposed Procedures p Colonoscopy(Not Applicable) - Urbano Chirinos MD Was Beta Gustavo taken within 24 hours: N/A Was Clonidine taken within 24 hours: N/A Last intake: Intake Last Liquid Date 07/23/21 Last Liquid Time 20:00 Last Solid Date 07/22/21 Social No alcohol and No tobacco Exam alert, oriented x 3, clear to auscultation bilaterally and regular rate & rhythm Airway Submandibular: within normal limits Cervical ROM: within normal limits Mallampati: Class II Dentition: full History/ROS No significant history except as noted and No significant complaints Pulmonary None reported CV/HEM None reported None reported Hepatic None reported GI None reported Metabolic Diabetes Mellitus and Hyperlipidemia [facility] [place] None reported Neuropsych Neuropathy Anesthetic Plan ASA status: 3 Anesthesia: Anesthesia Evaluation and MAC Risk of > 500 ml blood loss (7ml/kg in children): No Medications/Allergies Home Medications Medication Instructions Recorded Confirmed Last Taken Type glipizide 5 mg tablet 5 mg PO BID #180 tab 04/30/21 07/24/21 07/23/21 Rx metformin 1,000 mg 24 hr 1,000 mg PO BID #180 tab 04/30/21 07/24/21 07/22/21 Rx tablet,extended release diabetic shoes with molded inserts #1 ea 06/19/21 07/17/21 Unknown Rx insulin glargine 100 unit/mL (3 14 unit SUBCUT QAM 07/19/21 07/24/21 07/23/21 History mL) subcutaneous pen (Lantus Solostar U-100 Insulin) linaclotide 145 mcg capsule 290 mcg PO DAILY 60 Days #60 cap 07/24/21 07/24/21 07/23/21 Rx (Linzess) Allergies Allergy/AdvReac Type Severity Reaction Status Date / Time Penicillins Allergy Unknown Verified 07/24/21 11:09 Current Medications Generic Name Dose Route Start Last Admin Trade Name Freq PRN Reason Stop Dose Admin Sodium Chloride 1,000 mls @ 30 mls/hr 07/24/21 11:00 07/24/21 11:11 Sodium Chloride 0.9% IV 07/25/21 10:59 30 mls/hr .Q24H NORMAN Administration PFSH Anesthesia Medical History Hyperlipemia, mixed Hypertension Neuropathy Uncontrolled type 2 diabetes mellitus Surgical History (Updated 07/24/21 @ 13:37 by Urbano Chirinos MD) History of delivery History of knee surgery 1972 Status post colonoscopy (07/24/21) Status post right foot surgery Family History Other Diabetes Social History Smoking and tobacco status: current every day smoker Current occupational status: employed Current occupation: [employer] Female Reproductive History Date of last menstrual period: 12/07/20 Data Anesthesia Cardiac Studies: No Data to Display
[2021-07-24 12:58] VITALS: BP 94/61; PULSE 93; RESP 16; TEMP 36.8; O2SAT 98
[2021-07-24 13:08] VITALS: BP 112/80; PULSE 91; RESP 18; O2SAT 97
--- NOTE | 2021-07-24 13:44 | ANE.PACU2 ---
Inpatient post-anesthesia follow up: Airway intact: Yes Vital signs: Temperature 98.2 F Pulse Rate 91 Respiratory Rate 18 Blood Pressure 112/80 Pulse Oximetry 97 Oxygen Delivery Me thod Room Air Oxygen Flow Rate Fraction of Inspir ed Oxygen Hydration adequate: Yes Nausea and vomiting: No Pain level: 1 Mental status: Baseline
== END 2021-07-24 13:49 | disposition home or self-care (01) ==
PROVIDERS: PCP Nurse Practitioner Family; Visit Provider Surgery
PROC: 0DJD8ZZ Inspection of Lower Intestinal Tract, Via Natural or Artificial Opening Endoscopic (ICD-10-PCS; CPT 45378; principal; 2021-07-24 12:00)
DX: M86.9 Osteomyelitis, unspecified (principal); E78.2 Mixed hyperlipidemia; I10 Essential (primary) hypertension; E11.40 Type 2 diabetes mellitus with diabetic neuropathy, unspecified; F17.210 Nicotine dependence, cigarettes, uncomplicated; D12.3 Benign neoplasm of transverse colon; D12.8 Benign neoplasm of rectum; K64.8 Other hemorrhoids; Z79.4 Long term (current) use of insulin
CPT/HCPCS: 45380; 45385; 82274; 83630; 87493; 87506; 88305; 88342; J2704; J7030

== ENCOUNTER 2021-08-12 09:38 | Emergency (ER) | payer BC, SELFPAY ==
[2021-08-12 09:45] VITALS: BP 140/90; PULSE 114; RESP 18; TEMP 36.2; O2SAT 98; BMI 25.7
--- NOTE | 2021-08-12 09:56 | W.ED.ABDPA2 ---
HPI - Abdominal Pain General: Chief Complaint: Abdominal Pain Stated Complaint: abd/back bloating/pain Time Seen by Provider: 08/12/21 09:40 Source: patient Mode of arrival: ambulatory Limitations: no limitations History of Present Illness: 56-year-old female states that she has been having some abdominal pain for some quite some time. She has had chronic constipation was recently diagnosed with a carcinoid tumor. She states that she had to have a another colonoscopy on at [facility] and is had severe worsening abdominal pain since then. States she got diffuse pain she rates an 8 out of 10 she denies any vomiting. Patient denies any diarrhea. She denies any fevers. Denies any radiation of her pain. Associated Symptoms: Denies chills, dysuria and fever(s) Related Data: Date of Last Menstrual Period: 12/07/20 Review of Systems Const: Denies: fever(s), chills, body aches or change in appetite Eyes: Denies: blurry vision or eye discomfort ENMT: Denies: throat pain or dental pain Card: Denies: chest pain Resp: Denies: dyspnea GI: Reports: abdominal pain : Denies: dysuria Musc: Denies: neck pain or back pain Skin/Breast: Denies: rash Neuro: Denies: headache(s) Psych: Denies: depression Casey/Lymph: Denies: easy bruising All/Imm: Denies: urticaria PFSH ED PFSH: Medical History Carcinoid tumor of rectum Chronic constipation Hyperlipemia, mixed Hypertension Neuropathy Uncontrolled type 2 diabetes mellitus Surgical History History of delivery History of knee surgery 1972 Status post colonoscopy (07/24/21) Status post right foot surgery Family History Other Diabetes Social History Smoking and tobacco status: current every day smoker Current occupational status: employed Current occupation: [employer] Female Reproductive History: Date of last menstrual period: 12/07/20 Physical Exam Const: COMMON NORMALS: no acute distress, patient oriented x3 and healthy appearing HENMT: COMMON NORMALS: normocephalic and atraumatic HEAD & SCALP: normocephalic and atraumatic Eye: COMMON NORMALS: Equal, round and reactive pupils present and EOMs intact bilaterally PUPIL: Yes Equal, round and reactive pupils present Neck/C-Spine: COMMON NORMALS: full ROM and supple Chest: COMMONS NORMALS: normal inspection of the chest and normal palpation of entire chest wall Resp: COMMON NORMALS: normal respiratory effort, No retractions, No use of accessory muscles and clear to auscultation bilaterally AUSCULTATION: clear to auscultation bilaterally Cardio: COMMON NORMALS: regular rate, regular rhythm and No murmurs present (Cardio) RATE: regular rate RHYTHM: regular rhythm GI: COMMON NORMALS: Normal to inspection, nondistended, normoactive bowel sounds present, Soft to palpation and no masses PALPATION: Yes Soft to palpation OTHER: diffuse tenderness Extremity: COMMON NORMALS: normal to inspection and full ROM Neuro: COMMON NORMALS: patient oriented x3, moves all extremities and no focal motor deficits Psych: COMMON NORMALS: mental status grossly normal, Normal thought process present and cooperative THOUGHT PROCESS: Normal thought process present Skin: COMMON NORMALS: no rashes or lesions noted and no wounds GENERAL SKIN EXAM: no rashes or lesions noted Course Vital Signs: Vital signs: Vital Signs Temperature 97.2 F L 08/12/21 09:45 Pulse Rate 114 H 08/12/21 09:45 Respiratory Rate 18 08/12/21 10:23 Blood Pressure 164/91 08/12/21 10:23 Pulse Oximetry 100 08/12/21 10:23 MDM - Abdominal Pain Medical Decision Making Patient presents here with abdominal pain has been going on over a month. She did just have a colonoscopy she has follow-up with that surgeon on Friday at [facility]. Her blood work CT scan here showed no acute abnormalities we will prescribe her pain meds she is to follow-up as scheduled on Friday return if worsening. Lab Data : 08/12/21 09:55 08/12/21 09:55 Labs/Radiology: Radiology Impressions Abdomen/Pelvis CT 08/12/21 10:25 IMPRESSION: 1. No acute abdominopelvic abnormality identified. 2. Splenomegaly. COMMENTS: Evaluation of solid organs and vascular structures is limited as no IV contrast was administered. Laboratory Results WBC 6.5 10^3/uL (4.0-10.0) 08/12/21 09:55 RBC 4.87 10^6/uL (4.1-5.3) 08/12/21 09:55 Hgb 15.3 g/dL (11.5-15.3) 08/12/21 09:55 Hct 42.3 % (37.0-47.0) 08/12/21 09:55 MCV 86.9 fl (81-99) 08/12/21 09:55 MCH 31.4 pg (28.0-34.0) 08/12/21 09:55 MCHC 36.2 g/dL (30.0-36.0) H 08/12/21 09:55 RDW 11.6 % (12.1-15.1) L 08/12/21 09:55 Plt Count 170 10^3/cmm (130-400) 08/12/21 09:55 MPV 10.7 fL (7.4-10.4) H 08/12/21 09:55 Neut % (Auto) 68.1 % 08/12/21 09:55 Lymph % (Auto) 23.5 % 08/12/21 09:55 [place] % (Auto) 4.9 % 08/12/21 09:55 Eos % (Auto) 2.4 % 08/12/21 09:55 Baso % (Auto) 0.9 % 08/12/21 09:55 Neut # (Auto) 4.45 10^3/uL (1.8-7.7) 08/12/21 09:55 Lymph # (Auto) 1.5 10^3/uL (0.8-4.8) 08/12/21 09:55 [place] # (Auto) 0.3 10^3/uL (0.2-0.9) 08/12/21 09:55 Eos # (Auto) 0.2 10^3/uL (0.0-0.8) 08/12/21 09:55 Baso # (Auto) 0.1 10^3/uL (0.0-0.1) 08/12/21 09:55 Nucleated RBC % (auto) 0 % 08/12/21 09:55 Nucleated RBCs # 0.0 /100WBC 08/12/21 09:55 Sodium 138 mmol/L (136-145) 08/12/21 09:55 Potassium 4.0 mmol/L (3.5-5.1) 08/12/21 09:55 Chloride 100 mmol/L (98-107) 08/12/21 09:55 Carbon Dioxide 27 mmol/L (22-29) 08/12/21 09:55 Anion Gap 15.0 (5-19) 08/12/21 09:55 BUN 18 mg/dL (6-20) 08/12/21 09:55 Creatinine 0.5 mg/dL (0.5-0.9) 08/12/21 09:55 GFR Calculation 128.1 mL/min (90-130) 08/12/21 09:55 Glucose 190 mg/dL (65-115) H 08/12/21 09:55 Calculated Osmolality 293 mOsm/kg (285-295) 08/12/21 09:55 Calcium 10.5 mg/dL (8.5-10.5) 08/12/21 09:55 Total Bilirubin 0.5 mg/dL (0.15-1.2) 08/12/21 09:55 AST 15 U/L (0-32) 08/12/21 09:55 ALT 18 U/L (0-33) 08/12/21 09:55 Alkaline Phosphatase 69 IU/L (35-105) 08/12/21 09:55 Total Protein 7.9 g/dL (6.6-8.7) 08/12/21 09:55 Albumin 4.7 g/dL (3.5-5.2) 08/12/21 09:55 Globulin 3.2 g/dL (1.3-4.6) 08/12/21 09:55 Lipase 47 U/L (13-60) 08/12/21 09:55 Urine Color Yellow (Yellow) 08/12/21 09:55 Urine Appearance Clear (CLEAR) 08/12/21 09:55 Urine pH 5 (5-7) 08/12/21 09:55 Ur Specific [place] 1.020 (1.005-1.030) 08/12/21 09:55 Urine Protein Neg (Negative) 08/12/21 09:55 Urine Glucose (UA) Norm (Normal) 08/12/21 09:55 Urine Ketones Negative (Negative) 08/12/21 09:55 Urine Blood Neg (Negative) 08/12/21 09:55 Urine Nitrate Negative (Negative) 08/12/21 09:55 Urine Bilirubin Neg (Negative) 08/12/21 09:55 Urine Urobilinogen Norm mg/dL (Negative) 08/12/21 09:55 Ur Leukocyte Esterase Negative (Negative) 08/12/21 09:55 Discharge Plan Discharge Patient Disposition: Home Clinical Impression: Abdominal pain Condition: Stable Prescriptions: New hydrocodone-acetaminophen 5-325 mg tablet 1 tab PO Q6H PRN (Reason: pain) Qty: 14 0RF ondansetron 4 mg tablet,disintegrating 4 mg PO Q6H PRN (Reason: nausea and vomiting) Qty: 14 0RF No Action glipizide 5 mg tablet 5 mg PO BID Qty: 180 3RF metformin 1,000 mg tablet,ER sung.retention 24 hr 1,000 mg PO BID Qty: 180 3RF (DME) diabetic shoes with molded inserts See Rx Instructions .Route .MEDSUPPLY Qty: 1 0RF Rx Instructions: As directed Lantus Solostar U-100 Insulin 100 unit/mL (3 mL) insulin pen 14 unit SUBCUT QAM 0RF Rx Instructions: Inject 50 units subcut once a day. Linzess 145 mcg capsule 290 mcg PO DAILY 60 Days Qty: 60 0RF Discharge Orders: Discharge ED (Routine); Ordered 08/12/21 Ordered By: Flo Allan Referrals: Lalita Crain APN [Primary Care Provider] - Discharge Diet: Advance as tolerated Discharge Activity: Resume usual activity Patient Instructions: Abdominal Pain (ED), Opioid Safety Coding Level of Care Code ED Microstrategy Developer for Chg Fwd Exam Comprehensive
[2021-08-12 10:03] LABS: Add Urine Microscopic? NO; Charge for UA Resulting for Rev
[2021-08-12 10:07] LABS: Basophils # 0.1 10^3/uL (0.0-0.1); Basophils % 0.9 %; Eosinophils # 0.2 10^3/uL (0.0-0.8); Eosinophils % 2.4 %; Hematocrit 42.3 % (37.0-47.0); Hemoglobin 15.3 g/dL (11.5-15.3); Lymphocytes # 1.5 10^3/uL (0.8-4.8); Lymphocytes % 23.5 %; Mean Corpuscular HGB Conc 36.2 g/dL (30.0-36.0); Mean Corpuscular Hemoglobin 31.4 pg (28.0-34.0); Mean Corpuscular Volume 86.9 fl (81-99); Mean Platelet Volume 10.7 fL (7.4-10.4); Monocytes # 0.3 10^3/uL (0.2-0.9); Monocytes % 4.9 %; Neutrophils # 4.45 10^3/uL (1.8-7.7); Neutrophils % 68.1 %; Nucleated Red Blood Cells % 0 %; Platelet Count 170 10^3/cmm (130-400); Red Blood Count 4.87 10^6/uL (4.1-5.3); Red Cell Distribution Width 11.6 % (12.1-15.1); White Blood Count 6.5 10^3/uL (4.0-10.0)
[2021-08-12 10:10] LABS: Bilirubin Urine Neg (Negative); Blood Urine Neg (Negative); Glucose Urine UA Norm (Normal); Ketones Urine Negative (Negative); Leukocyte Esterase Urine Negative (Negative); Nitrate Urine Negative (Negative); Protein Urine Neg (Negative); Urine Appearance Clear (CLEAR); Urine Color Yellow (Yellow); Urobilinogen Urine Norm (Negative); pH Urine 5 (5-7)
[2021-08-12 10:18] VITALS: RESP 18; O2SAT 96
[2021-08-12] MEDS: morphine 4 mg/mL SDV 1 mL IVP (10:18)
[2021-08-12] MEDS: sodium chloride 0.9% 1,000 ML 999 ML IV (10:19)
[2021-08-12] MEDS: ondansetron 2 mg/ML SDV 2 mL 4 MG IVP (10:19)
[2021-08-12 10:23] VITALS: BP 164/91; RESP 18; O2SAT 100
--- NOTE | 2021-08-12 10:25 | CTR_ITS ---
PROCEDURE INFORMATION: Exam: CT Abdomen And Pelvis Without Contrast Exam date and time: 08/12/2021 10:39 AM Age: 56 years old Clinical indication: Abdominal pain; Generalized; Patient HX: Colonoscopy thrusday; Additional info: Abd pain TECHNIQUE: Imaging protocol: Computed tomography of the abdomen and pelvis without contrast. Radiation optimization: All CT scans at this facility use at least one of these dose optimization techniques: automated exposure control; mA and/or kV adjustment per patient size (includes targeted exams where dose is matched to clinical indication); or iterative reconstruction. COMPARISON: No relevant prior studies available. RADIATION DOSE METRICS: Total DLP (mGy-cm): 1609.82 FINDINGS: Tubes, catheters and devices: Metallic devices noted in the fallopian tubes likely related to sterilization. Lungs: The visualized lung bases demonstrate no focal airspace opacification or pleural effusion. Heart: The visualized heart is within normal limits for size. There is no evidence of pericardial abnormality. Liver: The liver is normal in size and contour. Gallbladder and bile ducts: The gallbladder is distended with normal wall thickness and does not demonstrate calcified gallstones. No intra- or extra-hepatic biliary ductal dilatation. Pancreas: The pancreas appears normal. Spleen: Estimated splenic volume of 766 cc. Adrenal glands: The adrenals appear normal. Kidneys and ureters: The kidneys empty into non-dilated ureters. No renal or ureteral stones are identified. No perinephric or periureteral fat tissue stranding is identified. Stomach and bowel: The stomach is unremarkable. The small bowel loops are not abnormally dilated. The large bowel loops are not abnormally dilated. Appendix: The appendix appears normal. Intraperitoneal space: No ascites or significant fluid collection. Vasculature: The aorta is nonaneurysmal. The IVC appears normal. Lymph nodes: There are no enlarged lymph nodes. Urinary bladder: The bladder is distended and demonstrates no focal contour abnormality. Reproductive: The uterus appears normal. Bones/joints: Degenerative disc disease at L5-S1. Soft tissues: Unremarkable. CT/CT abdomen pelvis wo con [id number] IMPRESSION: 1. No acute abdominopelvic abnormality identified. 2. Splenomegaly. COMMENTS: Evaluation of solid organs and vascular structures is limited as no IV contrast was administered.
[2021-08-12 10:30] LABS: Alanine Aminotransferase 18 U/L (0-33); Albumin Level 4.7 g/dL (3.5-5.2); Alkaline Phosphatase 69 IU/L (35-105); Aspartate Amino Transferase 15 U/L (0-32); Blood Urea Nitrogen 18 mg/dL (6-20); Calcium 10.5 mg/dL (8.5-10.5); Carbon Dioxide 27 mmol/L (22-29); Chloride 100 mmol/L (98-107); Creatinine Clr Calc Pharmacy 152.6201; Globulin 3.2 g/dL (1.3-4.6); Glomerular Filtration Rate 128.1 mL/min (90-130); Glucose 190 mg/dL (65-115); Lipase 47 U/L (13-60); Osmolality Calculated 293 mOsm/kg (285-295); Sodium 138 mmol/L (136-145); Total Bilirubin 0.5 mg/dL (0.15-1.2); Total Protein 7.9 g/dL (6.6-8.7)
[2021-08-12 11:23] VITALS: BP 161/89; PULSE 68; RESP 18; TEMP 36.6; O2SAT 99
== END 2021-08-12 11:42 | disposition home or self-care (01) ==
PROVIDERS: Emergency Provider Emergency Medicine; PCP Nurse Practitioner Family
DX: R10.9 Unspecified abdominal pain (principal); E11.9 Type 2 diabetes mellitus without complications; I10 Essential (primary) hypertension; E78.2 Mixed hyperlipidemia; Z79.4 Long term (current) use of insulin; Z79.84 Long term (current) use of oral hypoglycemic drugs
CPT/HCPCS: 74176; 80053; 81003; 83690; 85025; 96361; 96374; 96375; 99284; J2270; J2405; J7030

== ENCOUNTER 2021-09-05 06:00 | Outpatient (RCR) | payer BC, SELFPAY | END 2021-09-23 23:59 | disposition home or self-care (01) | LOC: TPT 06:00 | PROVIDERS: PCP Nurse Practitioner Family; Referring Provider Podiatrist Foot & Ankle Surgery; Visit Provider Podiatrist Foot & Ankle Surgery | DX: R53.1 Weakness (principal) | CPT/HCPCS: 97110; 97116; 97162 ==

== ENCOUNTER 2021-09-24 06:00 | Outpatient (RCR) | payer BC, SELFPAY | END 2021-10-24 23:59 | disposition home or self-care (01) | LOC: TPT 06:00 | PROVIDERS: PCP Nurse Practitioner Family; Referring Provider Podiatrist Foot & Ankle Surgery; Visit Provider Podiatrist Foot & Ankle Surgery | DX: R53.1 Weakness (principal) | CPT/HCPCS: 97110; 97116 ==

== ENCOUNTER 2021-10-02 07:38 | Outpatient (CLI) | payer BC, SELFPAY ==
--- NOTE | 2021-10-02 08:00 | NM_ITS ---
WS: [id number] NUCLEAR MEDICINE HIDA SCAN CLINICAL INFORMATION: post prandial abdominal pain TECHNIQUE: Following intravenous administration of 7.6 mCi of technetium 99m mebrofenin, images of th e abdomen were obtained over the course of 60 minutes. Next, gallbladder ejection fraction was determ ined by obtaining preprandial and one-hour postprandial images of the gallbladder following oral hailee stion of Ensure. COMPARISON: None. FINDINGS: Normal hepatic uptake at 5 minutes. Gallbladder is visualized by 15 minutes. Normal common bile duct. Normal small bowel activity. No evidence of acute cholecystitis. Normal hepatic excretion. Gallbladder ejection fraction 68% within normal limits. No evidence of chronic cholecystitis. NM/NM hepatobiliary w phar* [id number] IMPRESSION: 1. No evidence of acute or chronic cholecystitis. 2. Gallbladder ejection fraction 68% within normal limits.
== END 2021-10-02 07:39 | disposition home or self-care (01) ==
PROVIDERS: PCP Internal Medicine; Visit Provider Internal Medicine
DX: R10.11 Right upper quadrant pain (principal)
CPT/HCPCS: 78227; A9537

== ENCOUNTER 2021-10-08 06:48 | Day surgery (SDC) | payer BC, SELFPAY ==
[2021-10-04 14:01] VITALS: BMI 25.1
[2021-10-08 07:03] VITALS: BP 156/91; PULSE 90; RESP 18; TEMP 36.1; O2SAT 97
[2021-10-08] MEDS: sodium chloride 0.9% 1,000 ML 30 ML IV (07:08)
--- NOTE | 2021-10-08 07:55 | W.PM.OPSFHP ---
Same Day Surgery H&P Indication for Procedure/HPI DATE OF PROCEDURE: October 08, 2021 CHIEF COMPLAINT/INDICATIONFOR SURGICAL PROCEDURE: Postprandial abdominal postprandial abdominal pain PREOP DIAGNOSIS: Constipation PLANNED PROCEDURE: Operation Date: 10/08/21 08:15 Proposed Procedures p EGD 44791,R10.13(Not Applicable) - Jordon Napoles MD Medications/Allergies* Home Medications Medication Instructions Recorded Confirmed Type insulin glargine 100 unit/mL (3 14 unit SUBCUT QAM 07/19/21 10/08/21 History mL) subcutaneous pen (Lantus Solostar U-100 Insulin) bisacodyl 5 mg tablet,delayed 5 mg PO DAILY 09/19/21 10/08/21 History release escitalopram oxalate 10 mg tablet 10 mg PO DAILY 09/19/21 10/08/21 History (Lexapro) oxycodone 5 mg tablet 5 mg PO Q6H PRN Pain 10/04/21 10/08/21 History trazodone 100 mg tablet 100 mg PO DAILY 10/04/21 10/08/21 History Allergies/Adverse Reactions Allergy/AdvReac Type Severity Reaction Status Date / Time Penicillins Allergy Unknown Verified 10/08/21 06:58 Current Medications: Generic Name Dose Route Start Last Admin Trade Name Freq PRN Reason Stop Dose Admin Sodium Chloride 1,000 mls @ 30 mls/hr 10/08/21 07:00 10/08/21 07:08 Sodium Chloride 0.9% IV 10/09/21 06:59 30 mls/hr .Q24H NORMAN Administration Pertinent History/Comorbid Conditions* Medical History (Updated 09/19/21 @ 15:11 by Jordon Napoles MD) Carcinoid tumor of rectum Chronic constipation Hyperlipemia, mixed Hypertension Neuropathy Uncontrolled type 2 diabetes mellitus Surgical History (Updated 07/24/21 @ 13:37 by Urbano Chirinos MD) History of delivery History of knee surgery 1972 Status post colonoscopy (07/24/21) Status post right foot surgery Family History (Updated 12/16/19 @ 08:48 by Nicol De Anda LPN) Diabetes Social History Smoking and tobacco status: former smoker Current occupational status: employed Current occupation: [employer] Pertinent Exam Findings alert, oriented x 3, clear to auscultation bilaterally, regular rate & rhythm, operative site marked and procedure specific exam findings Recommendations Surgery/Procedure today Coding Level of Care Code Acute Marine Structural Welder for Chg Fwd
--- NOTE | 2021-10-08 08:43 | ANES.PREANE2 ---
Pre-Anesthetic Assessment Height/Weight: Height 1.8 m Weight 81.647 kg Temp Pulse Resp BP Pulse Ox O2 Del Method 97.0 F L 90 18 156/91 97 10/08/21 07:03 10/08/21 07:03 10/08/21 07:03 10/08/21 07:03 10/08/21 07:03 10/08/21 07:03 Preop Diagnosis: Constipation Operation Date: 10/08/21 08:15 Proposed Procedures p EGD 70859,R10.13(Not Applicable) - Jordon Napoles MD Familial anesthetic complications: None Was Beta Gustavo taken within 24 hours: N/A Was Clonidine taken within 24 hours: N/A Last intake: Intake Last Liquid Date 10/07/21 Last Liquid Time 18:00 Last Solid Date 10/07/21 Last Solid Time 18:00 Social No alcohol and No tobacco Exam alert, oriented x 3, clear to auscultation bilaterally and regular rate & rhythm Airway Submandibular: within normal limits Cervical ROM: within normal limits Mallampati: Class II Dentition: full GI carcinoid tumoar Metabolic Diabetes Mellitus Neuropsych Neuropathy Anesthetic Plan ASA status: 3 Anesthesia: MAC Medications/Allergies Home Medications Medication Instructions Recorded Confirmed Last Taken Type glipizide 5 mg tablet 5 mg PO BID #180 tabs 04/30/21 10/08/21 10/07/21 Rx metformin 1,000 mg 24 hr 1,000 mg PO BID #180 tabs 04/30/21 10/08/21 10/07/21 Rx tablet,extended release diabetic shoes with molded inserts #1 ea 06/19/21 10/08/21 10/07/21 Rx insulin glargine 100 unit/mL (3 14 unit SUBCUT QAM 07/19/21 10/08/21 10/07/21 History mL) subcutaneous pen (Lantus Solostar U-100 Insulin) ondansetron 4 mg disintegrating 4 mg PO Q6H PRN nausea and 08/12/21 10/08/21 10/07/21 Rx tablet vomiting #14 tabs bisacodyl 5 mg tablet,delayed 5 mg PO DAILY 09/19/21 10/08/21 10/07/21 History release dicyclomine 10 mg capsule 10 mg PO QID PRN cramps #90 caps 09/19/21 10/08/21 10/07/21 Rx escitalopram oxalate 10 mg tablet 10 mg PO DAILY 09/19/21 10/08/21 10/07/21 History (Lexapro) oxycodone 5 mg tablet 5 mg PO Q6H PRN Pain 10/04/21 10/08/21 10/08/21 History trazodone 100 mg tablet 100 mg PO DAILY 10/04/21 10/08/21 10/07/21 History Allergies Allergy/AdvReac Type Severity Reaction Status Date / Time Penicillins Allergy Unknown Verified 10/08/21 06:58 Current Medications Generic Name Dose Route Start Last Admin Trade Name Freq PRN Reason Stop Dose Admin Sodium Chloride 1,000 mls @ 30 mls/hr 10/08/21 07:00 10/08/21 07:08 Sodium Chloride 0.9% IV 10/09/21 06:59 30 mls/hr .Q24H NORMAN Administration PFSH Anesthesia Medical History Carcinoid tumor of rectum Chronic constipation Hyperlipemia, mixed Hypertension Neuropathy Uncontrolled type 2 diabetes mellitus Surgical History History of delivery History of knee surgery 1972 Status post colonoscopy (07/24/21) Status post right foot surgery Family History Other Diabetes Social History Smoking and tobacco status: former smoker Current occupational status: employed Current occupation: [employer] Female Reproductive History Date of last menstrual period: 12/07/20 Data Anesthesia Cardiac Studies: No Data to Display
[2021-10-08 09:16] VITALS: BP 117/82; PULSE 79; RESP 18; TEMP 36.5; O2SAT 93
--- NOTE | 2021-10-08 12:58 | ANE.PACU2 ---
Inpatient post-anesthesia follow up: Airway intact: Yes Vital signs: Temperature 97.7 F Pulse Rate 79 Respiratory Rate 18 Blood Pressure 117/82 Pulse Oximetry 93 Oxygen Delivery Me thod Room Air Oxygen Flow Rate Fraction of Inspir ed Oxygen Hydration adequate: Yes Nausea and vomiting: No Pain level: 2 Mental status: Baseline
[2021-10-09 13:37] LABS: H. Pylori / CLO Test Negative
== END 2021-10-08 09:47 | disposition home or self-care (01) ==
PROVIDERS: PCP Internal Medicine; Visit Provider Internal Medicine
PROC: 0DJ08ZZ Inspection of Upper Intestinal Tract, Via Natural or Artificial Opening Endoscopic (ICD-10-PCS; CPT 43235; principal; 2021-10-08 08:15)
DX: R10.13 Epigastric pain (principal); K25.7 Chronic gastric ulcer without hemorrhage or perforation; E11.40 Type 2 diabetes mellitus with diabetic neuropathy, unspecified; Z79.84 Long term (current) use of oral hypoglycemic drugs; Z79.4 Long term (current) use of insulin; E78.2 Mixed hyperlipidemia; I10 Essential (primary) hypertension; Z87.891 Personal history of nicotine dependence
CPT/HCPCS: 43239; 87077; J2704; J7030

== ENCOUNTER 2021-10-24 10:33 | Emergency (ER) | payer BC, SELFPAY ==
[2021-10-24 10:41] VITALS: BP 143/90; PULSE 105; RESP 15; TEMP 36.7; O2SAT 98; BMI 24.3
--- NOTE | 2021-10-24 10:53 | PC.NURSE ---
pt reports pain to RUQ and LUQ abdomen radiating to back. worse to RUQ. being seen by another physician for possible gallbladder issues but she is unable to bear the pain anymore. reports she has had a couple of falls recently with most recent one a couple days ago. reports she was walking and lost her balance and fell backwards onto her back. reports baseline decreased strength to her left leg due to a diabetic ulcer. Denies nausea, vomiting, diarrhea, or fevers. pt reports pain in her back with breathing. lung sounds clear bilat. bowel sounds present, abdomen soft
--- NOTE | 2021-10-24 10:55 | XR_ITS ---
WS: [id number] Exam: XR chest 2V* [id number] Date/Time of Exam: 10/24/2021 10:59 AM Reason For Exam: chest pain No priors. The lungs are fully expanded and clear. Normal cardiomediastinal silhouette. Bony structures are inta ct. Mild dextroscoliosis of the T-spine. XR/XR chest 2V* [id number] IMPRESSION: 1. No acute cardiopulmonary finding.
[2021-10-24 10:56] VITALS: BP 131/94
--- NOTE | 2021-10-24 11:07 | ECG_ITS ---
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 Measurements Intervals [place] Rate: 98 P: 58 VT: 142 QRS: 36 QRSD: 81 T: 67 QT: 323 QTc: 414 Interpretive Statements SINUS RHYTHM POSSIBLE LEFT ATRIAL ENLARGEMENT [-0.1mV P-WAVE IN V1/V2] No previous ECG available for comparison Electronically Signed On 10-24-2021 16:20:01 CDT by Toya Rogers M.D. [id number]
--- NOTE | 2021-10-24 11:07 | W.ED.ABDPA2 ---
HPI - Abdominal Pain General: Chief Complaint: Abdominal Pain Stated Complaint: Chest to back pain Time Seen by Provider: 10/24/21 10:38 Source: patient Mode of arrival: ambulatory Limitations: no limitations History of Present Illness: 56-year-old female who said abdominal pain radiating to her back for last 2 to 3 months. She had extensive work-up by Dr. Napoles including a HIDA scan all of which has been negative. She is diabetic she has not had any current gastric emptying study done. She did have her some form of 2-hole ulcer evidently had a resection of a portion of COVID not completely amputated she had a few falls as well she complaining of tenderness across her back she does not recently she fell specifically on the back. She states her tells me she was being prescribed oxycodone and that was not working. MD elicited complaint: abdominal pain Onset (ago): month(s) (2-3) Pain Consistency: intermittent Location: Epigastric and RUQ Severity: moderate Quality: cramping and stabbing Radiation: back Exacerbating factors: nothing Relieving factors: nothing Associated Symptoms: Reports GI cramping, nausea and poor appetite; Denies anorexia, belching, bloating, change in bowel habits, change in stool character, chills, coffee ground emesis, constipation, diarrhea, dyspepsia, dysuria, excessive flatus, fever(s), heartburn, hematochezia, hematuria, hematemesis, fecal incontinence, loose stools, melena, syncope and vomiting Related Data: Date of Last Menstrual Period: 12/07/20 Review of Systems Const: Denies: fever(s), chills, fatigue or malaise ENMT: Denies: throat pain, ear or mastoid pain, nasal discharge or nasal congestion Card: Denies: chest pain, palpitations, irregular heart rhythm or syncope Resp: Denies: dyspnea, productive cough or non-productive cough GI: Reports: abdominal pain, nausea and GI cramping; Denies: vomiting, hematemesis, coffee ground emesis, heartburn, diarrhea, constipation, bloating, belching, excessive flatus, fecal incontinence, change in bowel habits, change in stool character, hematochezia or melena : Denies: flank pain, difficulty voiding, dysuria, urinary frequency, urinary urgency or hematuria Skin/Breast: Denies: rash or pruritus PFSH ED PFSH: Medical History Carcinoid tumor of rectum Chronic constipation Hyperlipemia, mixed Hypertension Neuropathy Uncontrolled type 2 diabetes mellitus Surgical History History of delivery History of knee surgery 1972 Status post colonoscopy (07/24/21) Status post right foot surgery Family History Other Diabetes Social History Smoking and tobacco status: former smoker Current occupational status: employed Current occupation: [employer] Female Reproductive History: Date of last menstrual period: 12/07/20 Physical Exam Const: GENERAL APPEARANCE: cooperative and comfortable ORIENTATION/CONSCIOUSNESS: Yes awake, Yes oriented to person, Yes oriented to place and Yes oriented to time HENMT: COMMON NORMALS: normocephalic, atraumatic and hearing grossly normal bilaterally HEAD & SCALP: normocephalic and atraumatic Resp: COMMON NORMALS: normal respiratory effort, No retractions, No use of accessory muscles and clear to auscultation bilaterally AUSCULTATION: clear to auscultation bilaterally Cardio: COMMON NORMALS: regular rate, regular rhythm and No murmurs present (Cardio) RATE: regular rate RHYTHM: regular rhythm GI: COMMON NORMALS: Soft to palpation and No hepatosplenomegaly present AUSCULTATION: Yes normoactive bowel sounds PALPATION: Yes Soft to palpation, No Tenderness to palpation present (GI), No Guarding due to palpation present (GI) and Yes No hepatosplenomegaly present Extremity: COMMON NORMALS: normal to inspection, capillary refill normal, no clubbing, cyanosis or edema, no calf tenderness and no pedal edema Neuro: SENSORIUM/ORIENTATION: Yes oriented to person, Yes oriented to place and Yes oriented to time Skin: COMMON NORMALS: no rashes or lesions noted GENERAL SKIN EXAM: no rashes or lesions noted Course Vital Signs: Vital signs: Vital Signs Temperature 98.0 F 10/24/21 10:41 Pulse Rate 98 10/24/21 12:25 Respiratory Rate 16 10/24/21 12:25 Blood Pressure 120/95 10/24/21 13:17 Pulse Oximetry 96 10/24/21 12:25 Oxygen Delivery Me thod 10/24/21 10:41 MDM - Abdominal Pain Medical Decision Making Patient has had previous extensive outpatient work-up. Do not know that there is really anything we contribute in the emergency room. Labs and exam done here did not show evidence of any emergent condition. I think she may benefit from a gastric emptying study and may also benefit from stopping her metformin which could contribute to her epigastric Corta-Cap upper quadrant abdominal pain. Previous HIDA scan was negative. He is CT was unremarkable. Patient asked that she be admitted to be evaluated. Advised him at this point we would recommend outpatient further evaluation but there is nothing that we do in the inpatient setting. The other option is to go back to his primary care doctor or seek out a second opinion. Patient's was insistent that she be admitted advised at this time I do not have any indication. Medical Records I reviewed the patient's medical records. Lab Data : 10/24/21 11:39 10/24/21 11:39 Labs/Radiology: Radiology Impressions Chest X-Ray 10/24/21 10:55 IMPRESSION: 1. No acute cardiopulmonary finding. Lumbar Spine X-Ray 10/24/21 11:08 IMPRESSION: 1. Degenerative changes at the L5-S1 level as above. 2. No fracture or malalignment. Thoracic Spine X-Ray 10/24/21 11:08 IMPRESSION: 1. Mild degenerative change and osteopenia. No fracture or malalignment. 2. Minimal scoliosis. Laboratory Results WBC 6.1 10^3/uL (4.0-10.0) 10/24/21 11:39 RBC 4.74 10^6/uL (4.1-5.3) 10/24/21 11:39 Hgb 14.3 g/dL (11.5-15.3) 10/24/21 11:39 Hct 41.8 % (37.0-47.0) 10/24/21 11:39 MCV 88.2 fl (81-99) 10/24/21 11:39 MCH 30.2 pg (28.0-34.0) 10/24/21 11:39 MCHC 34.2 g/dL (30.0-36.0) 10/24/21 11:39 RDW 12.2 % (12.1-15.1) 10/24/21 11:39 Plt Count 138 10^3/cmm (130-400) 10/24/21 11:39 MPV 10.5 fL (7.4-10.4) H 10/24/21 11:39 Neut % (Auto) 75.7 % 10/24/21 11:39 Lymph % (Auto) 15.0 % 10/24/21 11:39 [place] % (Auto) 7.2 % 10/24/21 11:39 Eos % (Auto) 1.6 % 10/24/21 11:39 Baso % (Auto) 0.3 % 10/24/21 11:39 Neut # (Auto) 4.63 10^3/uL (1.8-7.7) 10/24/21 11:39 Lymph # (Auto) 0.9 10^3/uL (0.8-4.8) 10/24/21 11:39 [place] # (Auto) 0.4 10^3/uL (0.2-0.9) 10/24/21 11:39 Eos # (Auto) 0.1 10^3/uL (0.0-0.8) 10/24/21 11:39 Baso # (Auto) 0.0 10^3/uL (0.0-0.1) 10/24/21 11:39 Nucleated RBC % (auto) 0 % 10/24/21 11:39 Nucleated RBCs # 0.0 /100WBC 10/24/21 11:39 Sodium 137 mmol/L (136-145) 10/24/21 11:39 Potassium 4.1 mmol/L (3.5-5.1) 10/24/21 11:39 Chloride 100 mmol/L (98-107) 10/24/21 11:39 Carbon Dioxide 27 mmol/L (22-29) 10/24/21 11:39 Anion Gap 14.1 (5-19) 10/24/21 11:39 BUN 15 mg/dL (6-20) 10/24/21 11:39 Creatinine 0.4 mg/dL (0.5-0.9) L 10/24/21 11:39 GFR Calculation 165.7 mL/min (90-130) H 10/24/21 11:39 Glucose 143 mg/dL (65-115) H 10/24/21 11:39 Calculated Osmolality 287 mOsm/kg (285-295) 10/24/21 11:39 Calcium 10.7 mg/dL (8.5-10.5) H 10/24/21 11:39 Total Bilirubin 0.7 mg/dL (0.15-1.2) 10/24/21 11:39 AST 17 U/L (0-32) 10/24/21 11:39 ALT 20 U/L (0-33) 10/24/21 11:39 Alkaline Phosphatase 51 U/L (35-105) 10/24/21 11:39 Total Protein 6.8 g/dL (6.6-8.7) 10/24/21 11:39 Albumin 4.1 g/dL (3.5-5.2) 10/24/21 11:39 Globulin 2.7 g/dL (1.3-4.6) 10/24/21 11:39 Discharge Plan Discharge Patient Disposition: Home Clinical Impression: Abdominal pain, chronic, right upper quadrant Condition: Stable Prescriptions: No Action glipizide 5 mg tablet 5 mg PO BID Qty: 180 3RF escitalopram oxalate [Lexapro] 10 mg tablet 10 mg PO QAM (DME) diabetic shoes with molded inserts See Rx Instructions .Route .MEDSUPPLY Qty: 1 0RF Rx Instructions: As directed tramadol 50 mg tablet 50 mg PO Q4H PRN (Reason: pain) Qty: 60 0RF ondansetron 4 mg tablet,disintegrating 4 mg PO Q6H PRN (Reason: nausea and vomiting) Qty: 14 0RF oxycodone 5 mg tablet 5 mg PO Q6H PRN (Reason: Pain) trazodone 100 mg tablet 100 mg PO BEDTIME pantoprazole 40 mg tablet,delayed release (DR/EC) 40 mg PO DAILY Qty: 90 8RF metformin 500 mg tablet extended release 24 hr 1,000 mg PO BID docusate sodium [Colace] 100 mg Capsule 200 mg PO BID Metamucil 0.4 gram Capsule 0.4 g PO DAILY PRN (Reason: Constipation) Discharge Orders: Discharge ED (Routine); Ordered 10/24/21 Ordered By: Juan Mccall Referrals: Jordon Napoles MD [Primary Care Provider] - Discharge Diet: Usual diet Discharge Activity: Increase activity as tolerated Patient Instructions: Abdominal Pain (ED), Opioid Safety Activity Restrictions/Additional Instructions: Follow-up with your doctor for further evaluation. You may benefit from EGD and possibly a gastric emptying study. Coding Level of Care Code ED Infectious Disease Technician for Chg Fwd Exam Detailed
--- NOTE | 2021-10-24 11:08 | XR_ITS ---
WS: [id number] Exam: XR lumbar spine 2-3V* [id number] Date/Time of Exam: 10/24/2021 11:15 AM Reason For Exam: pain No fracture or dislocation. Degenerative vacuum disc at L5-S1. Mild facet DJD at L5-S1. Posterior ubaldo ments are otherwise intact. Mild DJD of the SI joints. XR/XR lumbar spine 2-3V* [id number] IMPRESSION: 1. Degenerative changes at the L5-S1 level as above. 2. No fracture or malalignment.
--- NOTE | 2021-10-24 11:08 | XR_ITS ---
WS: [id number] Exam: XR thoracic spine 3V* [id number] Date/Time of Exam: 10/24/2021 11:15 AM Reason For Exam: pain No fracture or dislocation. Mild dextroscoliosis. Minimal spondylosis. Normal paraspinal soft tissues . Osteopenia. XR/XR thoracic spine 3V* [id number] IMPRESSION: 1. Mild degenerative change and osteopenia. No fracture or malalignment. 2. Minimal scoliosis.
--- NOTE | 2021-10-24 11:40 | PC.NURSE ---
was unable to obtain labs during IV start. Lab notified.
[2021-10-24 11:51] LABS: Basophils % 0.3 %; Eosinophils # 0.1 10^3/uL (0.0-0.8); Eosinophils % 1.6 %; Hematocrit 41.8 % (37.0-47.0); Hemoglobin 14.3 g/dL (11.5-15.3); Lymphocytes # 0.9 10^3/uL (0.8-4.8); Mean Corpuscular HGB Conc 34.2 g/dL (30.0-36.0); Mean Corpuscular Hemoglobin 30.2 pg (28.0-34.0); Mean Corpuscular Volume 88.2 fl (81-99); Mean Platelet Volume 10.5 fL (7.4-10.4); Monocytes # 0.4 10^3/uL (0.2-0.9); Monocytes % 7.2 %; Neutrophils # 4.63 10^3/uL (1.8-7.7); Neutrophils % 75.7 %; Nucleated Red Blood Cells % 0 %; Platelet Count 138 10^3/cmm (130-400); Red Blood Count 4.74 10^6/uL (4.1-5.3); Red Cell Distribution Width 12.2 % (12.1-15.1); White Blood Count 6.1 10^3/uL (4.0-10.0)
[2021-10-24 12:05] LABS: Alanine Aminotransferase 20 U/L (0-33); Albumin Level 4.1 g/dL (3.5-5.2); Alkaline Phosphatase 51 U/L (35-105); Anion Gap 14.1 (5-19); Aspartate Amino Transferase 17 U/L (0-32); Blood Urea Nitrogen 15 mg/dL (6-20); Calcium 10.7 mg/dL (8.5-10.5); Carbon Dioxide 27 mmol/L (22-29); Chloride 100 mmol/L (98-107); Globulin 2.7 g/dL (1.3-4.6); Glomerular Filtration Rate 165.7 mL/min (90-130); Glucose 143 mg/dL (65-115); Osmolality Calculated 287 mOsm/kg (285-295); Potassium 4.1 mmol/L (3.5-5.1); Sodium 137 mmol/L (136-145); Total Bilirubin 0.7 mg/dL (0.15-1.2); Total Protein 6.8 g/dL (6.6-8.7)
--- NOTE | 2021-10-24 12:09 | PC.NURSE ---
assisted pt to restroom
[2021-10-24 12:25] VITALS: PULSE 98; RESP 16; O2SAT 96
[2021-10-24 13:17] VITALS: BP 120/95
== END 2021-10-24 13:19 | disposition home or self-care (01) ==
PROVIDERS: Emergency Provider Family Medicine; PCP Internal Medicine
DX: G89.29 Other chronic pain (principal); R10.11 Right upper quadrant pain; Z79.84 Long term (current) use of oral hypoglycemic drugs; E78.2 Mixed hyperlipidemia; I10 Essential (primary) hypertension; E11.9 Type 2 diabetes mellitus without complications; Z87.891 Personal history of nicotine dependence
CPT/HCPCS: 36415; 71046; 72072; 72100; 80053; 85025; 93005; 99285

== ENCOUNTER → 2021-11-21 11:31 | Outpatient (BNVA) | payer BC, SELFPAY | PROVIDERS: PCP Internal Medicine; Visit Provider Internal Medicine | DX: R10.11 Right upper quadrant pain (principal) | CPT/HCPCS: 86705; 86706; 86709; 86803; 87340 ==

== ENCOUNTER 2021-12-06 08:40 | Outpatient (CLI) | payer BC, SELFPAY ==
--- NOTE | 2021-12-06 08:45 | MR_ITS ---
WS: [id number] MRI/MRCP OF THE ABDOMEN WITHOUT GADOLINIUM ENHANCEMENT TECHNIQUE: Thin and thick slab MRCP, Axial T2, Coronal MRCP, Axial Dual Echo, and Axial 2-D Fiesta imaging was obtained. Coronal 2-D Fiesta imaging. CLINICAL INFORMATION: Post prandial abdominal pain despite cholecystectomy. COMPARISON: CT August 12, 2021 FINDINGS: Recent postoperative changes cholecystectomy. Cholecystectomy is new since August 12, 2021. Common bile duct measuring 11 mm appears unchanged from the prior CT. This tapers normally at the pancreatic hea d. No evidence of choledocholithiasis. Common bile duct appears patent. Mild intrahepatic ductal dila tation with mild periportal edema. Recommend correlation with liver function tests. Findings can be s een with ascending cholangitis. Mild hepatomegaly. Mild splenomegaly unchanged since August 12, 2021. Spleen measures 13.0 CM. Normal c aliber abdominal aorta. Celiac and SMA are patent. Normal portal vein and splenic vein. No hydronephrosis in either kidney. Small LEFT renal cyst. Visualized pancreas appears normal. Normal pancreatic duct. No significant fluid collection in the gallbladder fossa. MR/MR MRCP [id number] IMPRESSION: 1. Interval cholecystectomy. No significant fluid in the gallbladder fossa. 2. Common bile duct measuring 11 mm unchanged since the prior CT. No evidence of obstructing common bile duct calculus. Common bile duct tapers normally at t he pancreatic head. 3. Mild intrahepatic biliary ductal dilatation with mild periportal edema. Rec ommend correlation with liver function tests. Findings can be seen with ascendi ng cholangitis. 4. Normal visualized pancreas. 5. Hepatomegaly and splenomegaly unchanged. 6. No hydronephrosis in either kidney. Small LEFT renal cyst.
== END 2021-12-06 08:41 | disposition home or self-care (01) ==
LOC: RAD 08:40
PROVIDERS: PCP Internal Medicine; Visit Provider Internal Medicine
DX: R10.11 Right upper quadrant pain (principal); Z90.49 Acquired absence of other specified parts of digestive tract; R16.2 Hepatomegaly with splenomegaly, not elsewhere classified; N28.1 Cyst of kidney, acquired
CPT/HCPCS: 74181

== ENCOUNTER 2022-06-14 11:58 | Outpatient (RCR) | payer BC, SELFPAY | END 2022-06-23 23:59 | disposition home or self-care (01) | LOC: TPT 11:58 | PROVIDERS: Visit Provider Nurse Practitioner Acute Care | DX: Q45.1 Annular pancreas (principal) | CPT/HCPCS: 97162 ==

== ENCOUNTER → 2022-06-20 09:21 | Outpatient (BNVA) | payer BC, SELFPAY | PROVIDERS: Visit Provider Transplant Surgery | DX: R10.9 Unspecified abdominal pain (principal) | CPT/HCPCS: 80053; 85025 ==

== ENCOUNTER 2022-07-25 07:35 | Outpatient (RCR) | payer BC, SELFPAY | END 2022-08-23 23:59 | disposition home or self-care (01) | LOC: TPT 07:35 | PROVIDERS: Visit Provider Nurse Practitioner Acute Care | DX: Q45.1 Annular pancreas (principal) | CPT/HCPCS: 97110; 97116 ==

== ENCOUNTER 2022-08-24 06:00 | Outpatient (RCR) | payer BC, SELFPAY | END 2022-09-23 23:59 | disposition home or self-care (01) | LOC: TPT 06:00 | PROVIDERS: Visit Provider Nurse Practitioner Acute Care | DX: Q45.1 Annular pancreas (principal) | CPT/HCPCS: 97110; 97116 ==

== ENCOUNTER 2022-09-24 06:00 | Outpatient (RCR) | payer BC, SELFPAY | END 2022-10-24 23:59 | disposition home or self-care (01) | LOC: TPT 06:00 | PROVIDERS: Visit Provider Nurse Practitioner Acute Care | DX: Q45.1 Annular pancreas (principal) | CPT/HCPCS: 97110; 97116 ==

== ENCOUNTER 2023-04-08 06:00 | Outpatient (RCR) | payer BC, SELFPAY | END 2023-04-24 23:59 | disposition home or self-care (01) | LOC: TPT 06:00 | PROVIDERS: Visit Provider Internal Medicine | DX: R29.898 Other symptoms and signs involving the musculoskeletal system (principal) | CPT/HCPCS: 97110; 97162 ==

== ENCOUNTER 2023-04-25 06:00 | Outpatient (RCR) | payer BC, SELFPAY | END 2023-05-25 23:59 | disposition home or self-care (01) | LOC: TPT 06:00 | PROVIDERS: Visit Provider Internal Medicine | DX: R29.898 Other symptoms and signs involving the musculoskeletal system (principal) | CPT/HCPCS: 97110; 97116 ==

== ENCOUNTER 2023-05-26 06:00 | Outpatient (RCR) | payer BC, SELFPAY | END 2023-06-24 23:59 | disposition home or self-care (01) | LOC: TPT 06:00 | PROVIDERS: Visit Provider Internal Medicine | DX: R29.898 Other symptoms and signs involving the musculoskeletal system (principal) | CPT/HCPCS: 97110; 97116 ==

== ENCOUNTER → 2023-12-30 14:36 | Outpatient (BNVA) | payer BC, SELFPAY | PROVIDERS: Visit Provider Podiatrist Foot & Ankle Surgery | DX: E11.621 Type 2 diabetes mellitus with foot ulcer (principal); L97.512 Non-pressure chronic ulcer of other part of right foot with fat layer exposed; E11.42 Type 2 diabetes mellitus with diabetic polyneuropathy; M21.611 Bunion of right foot; M21.612 Bunion of left foot; M20.21 Hallux rigidus, right foot; M20.22 Hallux rigidus, left foot; Z79.84 Long term (current) use of oral hypoglycemic drugs | CPT/HCPCS: 73630; 87070; 87075; 87205 ==

== ENCOUNTER 2024-10-29 14:12 | Outpatient (CLI) | payer BC, SELFPAY ==
--- NOTE | 2024-10-29 14:17 | USCV_ITS ---
Chloe Musa Age: 59 Gender: F : 1965 Exam Date: 10/29/2024 14:32 Ordering Phys: Jordon Napoles MD Technologist: [place] [facility] [place]: [place]ulitis of rt foot HISTORY: rt foot cellulitis PROCEDURES: Venous duplex imaging was performed in only the right lower extremity. Serial compression, augmentation maneuvers, and spectral Doppler flow evaluation were performed. FINDINGS: Normal 2-D Doppler and augmentation and compressibility throughout the lower extremity venous structures. Additional imaging through the proximal calf veins also reveals no thrombus. Limited evaluation of the greater saphenous vein is patent with no thrombus. CONCLUSIONS No DVT right lower extremity. Dr. Shameka Adame DO (Electronically Signed) Final Date: 29 October 2024 15:08 S
== END 2024-10-29 14:13 | disposition home or self-care (01) ==
LOC: RAD 14:13
PROVIDERS: PCP Internal Medicine; Visit Provider Internal Medicine
DX: L03.115 Cellulitis of right lower limb (principal)
CPT/HCPCS: 93971

== ENCOUNTER → 2024-11-02 09:13 | Outpatient (BNVA) | payer BC, SELFPAY | PROVIDERS: PCP Internal Medicine; Visit Provider Podiatrist Foot & Ankle Surgery | DX: M79.671 Pain in right foot (principal); E11.42 Type 2 diabetes mellitus with diabetic polyneuropathy; M14.671 Charcot's joint, right ankle and foot; Z79.84 Long term (current) use of oral hypoglycemic drugs | CPT/HCPCS: 73630 ==

== ENCOUNTER 2024-11-02 11:23 | Outpatient (CLI) | payer BC, SELFPAY | END 2024-11-02 11:24 | disposition home or self-care (01) | LOC: SPT 11:23 | PROVIDERS: PCP Internal Medicine; Visit Provider Podiatrist Foot & Ankle Surgery | DX: Z46.89 Encounter for fitting and adjustment of other specified devices (principal); E11.42 Type 2 diabetes mellitus with diabetic polyneuropathy; M79.671 Pain in right foot | CPT/HCPCS: L4361 ==

== ENCOUNTER → 2024-11-15 09:41 | Outpatient (BNVA) | payer BC, SELFPAY | PROVIDERS: PCP Internal Medicine; Visit Provider Podiatrist Foot & Ankle Surgery | DX: M14.671 Charcot's joint, right ankle and foot (principal); E11.42 Type 2 diabetes mellitus with diabetic polyneuropathy; Z79.84 Long term (current) use of oral hypoglycemic drugs | CPT/HCPCS: 73630 ==

== ENCOUNTER → 2024-11-25 10:31 | Outpatient (BNVA) | payer BC, SELFPAY | PROVIDERS: PCP Internal Medicine; Visit Provider Podiatrist Foot & Ankle Surgery | DX: M14.671 Charcot's joint, right ankle and foot (principal); E11.42 Type 2 diabetes mellitus with diabetic polyneuropathy; M79.671 Pain in right foot; I10 Essential (primary) hypertension; Z79.84 Long term (current) use of oral hypoglycemic drugs | CPT/HCPCS: 73630 ==

== ENCOUNTER → 2024-12-20 09:09 | Outpatient (BNVA) | payer BC, SELFPAY | PROVIDERS: PCP Internal Medicine; Visit Provider Podiatrist Foot & Ankle Surgery | DX: M14.671 Charcot's joint, right ankle and foot (principal); E11.42 Type 2 diabetes mellitus with diabetic polyneuropathy; I10 Essential (primary) hypertension | CPT/HCPCS: 73630 ==

== ENCOUNTER → 2025-01-24 09:53 | Outpatient (BNVA) | payer BC, SELFPAY | PROVIDERS: PCP Internal Medicine; Visit Provider Podiatrist Foot & Ankle Surgery | DX: M14.671 Charcot's joint, right ankle and foot (principal); M14.6 Charcot's joint; E11.42 Type 2 diabetes mellitus with diabetic polyneuropathy; I10 Essential (primary) hypertension; Z79.84 Long term (current) use of oral hypoglycemic drugs | CPT/HCPCS: 73630 ==